=== PATIENT | male | born 1940 | race Caucasian/White ===

== ENCOUNTER → 2016-12-07 | Outpatient (CLI) | payer MEDICARE | END | disposition home or self-care (01) | LOC: LABWHC1 11:07 | PROVIDERS: ATTEND Radiology Radiation Oncology | DX: C61 Malignant neoplasm of prostate (principal) | CPT/HCPCS: 36415; 84153 ==

== ENCOUNTER → 2017-03-19 | Outpatient (CLI) | payer MEDICARE | END | disposition home or self-care (01) | LOC: LABWHC1 13:25 | PROVIDERS: ATTEND Radiology Radiation Oncology | DX: C61 Malignant neoplasm of prostate (principal) | CPT/HCPCS: 36415; 84153 ==

== ENCOUNTER → 2017-06-18 | Outpatient (CLI) | payer MEDICARE | END | disposition home or self-care (01) | LOC: LABWHC1 13:05 | PROVIDERS: ATTEND Radiology Radiation Oncology | DX: C61 Malignant neoplasm of prostate (principal) | CPT/HCPCS: 36415; 84153 ==

== ENCOUNTER → 2017-09-20 | Outpatient (CLI) | payer MEDICARE | END | disposition home or self-care (01) | LOC: LABWHC1 12:52 | PROVIDERS: ATTEND Radiology Radiation Oncology | DX: C61 Malignant neoplasm of prostate (principal) | CPT/HCPCS: 36415; 84153 ==

== ENCOUNTER → 2017-10-29 | Outpatient (CLI) | payer MEDICARE ==
[2017-10-29 13:34] LABS: MCH 33.2 pg (25.0-35.0); MCV 94.8 fL (80.0-100.0); Mean Platelet Volume 6.8; Platelet Count 204 k/uL (150-450); RBC 4.21 m/uL (4.30-5.90); RDW 13.7 % (11.5-15.5); WBC 5.4 k/uL (3.8-10.6)
[2017-10-29 13:45] LABS: C Reactive Protein 5.1 mg/L (<10.0); Calcium 9.3 mg/dL (8.4-10.2); Potassium 4.4 mmol/L (3.5-5.1); Total Bilirubin 0.5 mg/dL (0.2-1.3); Total Protein 6.9 g/dL (6.3-8.2)
[2017-10-29 14:52] LABS: Erythrocyte Sedimentation Rate 20 mm/hr (0-15)
== END | disposition home or self-care (01) ==
LOC: LABWHC1 13:12
PROVIDERS: ATTEND Family Medicine
DX: K62.7 Radiation proctitis (principal)
CPT/HCPCS: 36415; 80053; 84134; 85027; 85652; 86140

== ENCOUNTER → 2018-01-17 | Outpatient (CLI) | payer MEDICARE | END | disposition home or self-care (01) | LOC: LABWHC1 12:36 | PROVIDERS: ATTEND Radiology Radiation Oncology | DX: C61 Malignant neoplasm of prostate (principal) | CPT/HCPCS: 36415; 84153; 84403 ==

== ENCOUNTER → 2018-04-12 | Outpatient (CLI) | payer MEDICARE | END | disposition home or self-care (01) | LOC: LABWHC1 13:32 | PROVIDERS: ATTEND Radiology Radiation Oncology | DX: C61 Malignant neoplasm of prostate (principal) | CPT/HCPCS: 36415; 84153; 84403 ==

== ENCOUNTER → 2018-07-12 | Outpatient (CLI) | payer MEDICARE | END | disposition home or self-care (01) | LOC: LABWHC1 13:56 | PROVIDERS: ATTEND Radiology Radiation Oncology | DX: C61 Malignant neoplasm of prostate (principal); Z79.818 Long term (current) use of other agents affecting estrogen receptors and estrogen levels; Z92.3 Personal history of irradiation | CPT/HCPCS: 36415; 84153; 84403 ==

== ENCOUNTER → 2018-11-10 | Outpatient (CLI) | payer MEDICARE | END | disposition home or self-care (01) | LOC: LABWHC1 13:40 | PROVIDERS: ATTEND Radiology Radiation Oncology | DX: C61 Malignant neoplasm of prostate (principal); Z92.3 Personal history of irradiation; Z79.818 Long term (current) use of other agents affecting estrogen receptors and estrogen levels | CPT/HCPCS: 36415; 84153 ==

== ENCOUNTER → 2019-03-20 | Outpatient (CLI) | payer MEDICARE | END | disposition home or self-care (01) | LOC: LABWHC1 13:50 | PROVIDERS: ATTEND Radiology Radiation Oncology | DX: C61 Malignant neoplasm of prostate (principal); Z79.818 Long term (current) use of other agents affecting estrogen receptors and estrogen levels; Z92.3 Personal history of irradiation | CPT/HCPCS: 36415; 84153 ==

== ENCOUNTER 2019-05-05 15:55 | Observation (INO) | payer MEDICARE ==
[2019-05-05 16:49] LABS: Basophils # (A) 0.1 k/uL (0-0.2); Basophils % (A) 1 %; Eosinophils # (A) 0.1 k/uL (0-0.7); Eosinophils % (A) 2 %; HCT 51.6 % (39.0-53.0); HGB 17.1 gm/dL (13.0-17.5); Lymphocytes # (A) 1.4 k/uL (1.0-4.8); Lymphocytes % (A) 20 %; MCH 33.1 pg (25.0-35.0); MCHC 33.1 g/dL (31.0-37.0); MCV 99.9 fL (80.0-100.0); Mean Platelet Volume 6.3; Monocytes # (A) 0.4 k/uL (0-1.0); Monocytes % (A) 5 %; Neutrophils # (A) 5.2 k/uL (1.3-7.7); Neutrophils % (A) 71 %; Platelet Count 200 k/uL (150-450); RBC 5.16 m/uL (4.30-5.90); RDW 13.8 % (11.5-15.5); WBC 7.3 k/uL (3.8-10.6)
--- NOTE | 2019-05-05 16:51 | ED ---
General Adult HPI - General Chief complaint: Syncope Stated complaint: SYNCOPE, HEART RACING Time Seen by Provider: 05/05/19 16:08 Source: patient Mode of arrival: ambulatory Limitations: no limitations - History of Present Illness Initial comments: Dictation was produced using [employer] dictation software. please excuse any grammatical, word or spelling errors. Chief Complaint: 78-year-old male presents with syncope and palpitations. History of Present Illness: Any 8-year-old male. He presents today with chief complaint of syncope that occurred couple hours prior to arrival. Patient states he was at home over these plants when all of a sudden he remembers waking up on the ground around his plants. Patient states that he was at home by himself. Call was unwitnessed. Patient states he had episode of palpitations prior to the onset of his syncope. He states that his heart does not feel limits racing currently. Patient has history of A. fib that was diagnosed several years ago. He is to be on anticoagulation medications however it was stopped due to GI bleed. This occurred approximately 2 years ago. Patient is on a beta yary. Takes aspirin. He currently does not take any anticoagulation medications and has not had any since 2 years ago. Patient denies any complaints at this time. The ROS documented in this emergency department record has been reviewed and confirmed by me. Those systems with pertinent positive or negative responses have been documented in the HPI. All other systems are other negative and/or noncontributory. PHYSICAL EXAM: General Impression: Alert and oriented x3, not in acute distress HEENT: Normocephalic atraumatic, extra-ocular movements intact, pupils equal and reactive to light bilaterally, mucous membranes moist. Cardiovascular: Irregularly irregular rhythm Chest: Lungs clear to auscultation bilaterally, no rhonchi, no wheeze, no rales Abdomen: Bowel sounds present, abdomen soft, non-tender, non-distended, no organomegaly Musculoskeletal: Pulses present and equal in all extremities, no peripheral edema Motor: no focal deficits noted Neurological: CN II-XII grossly intact, no focal motor or sensory deficits noted Skin: Intact with no visualized rashes Psych: Normal affect and mood ED course: 78-year-old male presents after syncope. Signs upon arrival are within acceptable limits. EKG shows atrial fibrillation rapid ventricular rate. Patient's syncope is likely related to A. fib. Laboratory evaluation obtained. CBC, coag panel, metabolic panel is unremarkable. Stool occult blood is positive. Type and screen pending. Chest x-ray shows no acute cardiopulmonary processes. Computed tomography scan of the brain was obtained showing no acute processes. Discussed patient case with Dr. Jarquin who recommends that patient is not a candidate for heparin at this time given that patient is still occult blood positive and had blood clots in his stool 3 days ago. On Cardizem with adequate rate control. Patient given Protonix for GI bleed. Patient be admitted. Stationed cardiology and gastroenterology. Patient given aspirin for slight elevation in troponin. Discussed patient case with Dr. Velazquez was willing to accept patients care. Patient given 500 mL bolus of fluid. Patient adequately rate controlled upon reevaluation with Cardizem. EKG interpretation: Ventricular rate 1, A. fib with RVR, QS 140, QTc 511. No [place] prolongation, no QTC prolongation, no ST or T-wave changes noted. - Related Data Home Medications Medication Instructions Recorded Confirmed Furosemide [Lasix] 40 mg PO DAILY 01/29/14 11/11/17 Metoprolol Tartrate 25 mg PO DAILY 06/30/15 11/11/17 Multivitamins, Thera [Multivitamin 1 tab PO AC-SUPPER 06/30/15 11/11/17 (formulary)] Aspirin EC [Ecotrin Low Dose] 81 mg PO DAILY 07/16/15 11/11/17 Thyroid, Pork [[place] Thyroid] 120 mg PO DAILY@0630 10/28/17 11/11/17 Valsartan [Diovan] 160 mg PO DAILY 10/28/17 11/11/17 amLODIPine [Norvasc] 5 mg PO DAILY 10/28/17 11/11/17 Allergies Allergy/AdvReac Type Severity Reaction Status Date / Time levothyroxine sodium Allergy Unknown Verified 05/05/19 16:06 [From Synthroid] Penicillins Allergy Swelling Verified 05/05/19 16:06 rivaroxaban [From Xarelto] AdvReac Unknown Verified 05/05/19 16:06 Review of Systems ROS Statement: Those systems with pertinent positive or pertinent negative responses have been documented in the HPI. ROS Other: All systems not noted in ROS Statement are negative. Past Medical History Past Medical History: Atrial Fibrillation, Hypertension, Thyroid Disorder Additional Past Medical History / Comment(s): NO THYROID GLAND. Has not been in A Fib for over 3 years History of Any Multi-Drug Resistant Organisms: None Reported Past Surgical History: Joint Replacement Additional Past Surgical History / Comment(s): RIGHT KNEE REPLACEMENT 2009 Past Anesthesia/Blood Transfusion Reactions: No Reported Reaction Past Psychological History: No Psychological Hx Reported Smoking Status: Never smoker Past Alcohol Use History: Occasional Past Drug Use History: None Reported - Past Family History Mother Family Medical History: CVA/TIA Additional Family Medical History / Comment(s): OF STROKE AT 82 Father History Unknown: Yes Family Medical History: Diabetes Mellitus Additional Family Medical History / Comment(s): LATER IN LIFE Brother(s) History Unknown: Yes Additional Family Medical History / Comment(s): BRAIN ANERYSMN General Exam Limitations: no limitations Course Vital Signs 05/05/19 16:04 Temperature 98.2 F Pulse Rate 98 Respiratory 20 Rate Blood Pressure 130/76 O2 Sat by Pulse 100 Oximetry Medical Decision Making - Lab Data Result diagrams: 05/05/19 16:34 05/05/19 16:34 Lab Results 05/05/19 05/05/19 05/05/19 Range/Units 16:30 16:30 16:34 WBC (3.8-10.6) k/uL RBC (4.30-5.90) m/uL Hgb (13.0-17.5) gm/dL Hct (39.0-53.0) % MCV (80.0-100.0) fL MCH (25.0-35.0) pg MCHC (31.0-37.0) g/dL RDW (11.5-15.5) % Plt Count (150-450) k/uL Neutrophils % % Lymphocytes % % Monocytes % % Eosinophils % % Basophils % % Neutrophils # (1.3-7.7) k/uL Lymphocytes # (1.0-4.8) k/uL Monocytes # (0-1.0) k/uL Eosinophils # (0-0.7) k/uL Basophils # (0-0.2) k/uL PT (9.0-12.0) sec INR (<1.2) APTT (22.0-30.0) sec Sodium 140 (137-145) mmol/L Potassium 4.2 (3.5-5.1) mmol/L Chloride 104 (98-107) mmol/L Carbon Dioxide 26 (22-30) mmol/L Anion Gap 10 mmol/L BUN 15 (9-20) mg/dL Creatinine 0.98 (0.66-1.25) mg/dL Est GFR (CKD-EPI)AfAm 86 (>60 ml/min/1.73 sqM) Est GFR (CKD-EPI)NonAf 75 (>60 ml/min/1.73 sqM) Glucose 129 H (74-99) mg/dL Calcium 9.6 (8.4-10.2) mg/dL Magnesium (1.6-2.3) mg/dL Troponin I (0.000-0.034) ng/mL Stool Occult Blood Positive (Negative) Blood Type Blood Type Confirm O Negative Blood Type Recheck Bld Type Recheck Status Antibody Screen Spec Expiration Date 05/05/19 05/05/19 05/05/19 Range/Units 16:34 16:34 16:34 WBC 7.3 (3.8-10.6) k/uL RBC 5.16 (4.30-5.90) m/uL Hgb 17.1 (13.0-17.5) gm/dL Hct 51.6 (39.0-53.0) % MCV 99.9 (80.0-100.0) fL MCH 33.1 (25.0-35.0) pg MCHC 33.1 (31.0-37.0) g/dL RDW 13.8 (11.5-15.5) % Plt Count 200 (150-450) k/uL Neutrophils % 71 % Lymphocytes % 20 % Monocytes % 5 % Eosinophils % 2 % Basophils % 1 % Neutrophils # 5.2 (1.3-7.7) k/uL Lymphocytes # 1.4 (1.0-4.8) k/uL Monocytes # 0.4 (0-1.0) k/uL Eosinophils # 0.1 (0-0.7) k/uL Basophils # 0.1 (0-0.2) k/uL PT 9.7 (9.0-12.0) sec INR 0.9 (<1.2) APTT 24.4 (22.0-30.0) sec Sodium (137-145) mmol/L Potassium (3.5-5.1) mmol/L Chloride (98-107) mmol/L Carbon Dioxide (22-30) mmol/L Anion Gap mmol/L BUN (9-20) mg/dL Creatinine (0.66-1.25) mg/dL Est GFR (CKD-EPI)AfAm (>60 ml/min/1.73 sqM) Est GFR (CKD-EPI)NonAf (>60 ml/min/1.73 sqM) Glucose (74-99) mg/dL Calcium (8.4-10.2) mg/dL Magnesium (1.6-2.3) mg/dL Troponin I 0.025 (0.000-0.034) ng/mL Stool Occult Blood (Negative) Blood Type Blood Type Confirm Blood Type Recheck Bld Type Recheck Status Antibody Screen Spec Expiration Date 05/05/19 05/05/19 Range/Units 16:34 16:34 WBC (3.8-10.6) k/uL RBC (4.30-5.90) m/uL Hgb (13.0-17.5) gm/dL Hct (39.0-53.0) % MCV (80.0-100.0) fL MCH (25.0-35.0) pg MCHC (31.0-37.0) g/dL RDW (11.5-15.5) % Plt Count (150-450) k/uL Neutrophils % % Lymphocytes % % Monocytes % % Eosinophils % % Basophils % % Neutrophils # (1.3-7.7) k/uL Lymphocytes # (1.0-4.8) k/uL Monocytes # (0-1.0) k/uL Eosinophils # (0-0.7) k/uL Basophils # (0-0.2) k/uL PT (9.0-12.0) sec INR (<1.2) APTT (22.0-30.0) sec Sodium (137-145) mmol/L Potassium (3.5-5.1) mmol/L Chloride (98-107) mmol/L Carbon Dioxide (22-30) mmol/L Anion Gap mmol/L BUN (9-20) mg/dL Creatinine (0.66-1.25) mg/dL Est GFR (CKD-EPI)AfAm (>60 ml/min/1.73 sqM) Est GFR (CKD-EPI)NonAf (>60 ml/min/1.73 sqM) Glucose (74-99) mg/dL Calcium (8.4-10.2) mg/dL Magnesium 2.2 (1.6-2.3) mg/dL Troponin I (0.000-0.034) ng/mL Stool Occult Blood (Negative) Blood Type O Negative Blood Type Confirm Blood Type Recheck No Previous Record Bld Type Recheck Status CABO Indicated Antibody Screen NEGATIVE Spec Expiration Date 05/08/2019 - 2336 Critical Care Time Critical Care Time: Yes Total Critical Care Time: 31 Disposition Clinical Impression: Atrial fibrillation with RVR Disposition: ADMITTED IP TO THIS HOSP Condition: Fair Referrals: None,Stated [Primary Care Provider] - 1-2 days Decision Time: 17:39
[2019-05-05 16:56] LABS: Calcium 9.6 mg/dL (8.4-10.2); Potassium 4.2 mmol/L (3.5-5.1)
[2019-05-05 16:57] LABS: INR 0.9 (<1.2); Partial Thromboplastin Time 24.4 sec (22.0-30.0); Prothrombin Time 9.7 sec (9.0-12.0)
--- NOTE | 2019-05-05 17:13 | CT ---
EXAMINATION TYPE: CT brain cspine wo con DATE OF EXAM: 05/05/2019 COMPARISON: MRI brain dated 08/12/2015 HISTORY: Syncope with fall injury. Head and neck pain. CT DLP: 1517.3 mGycm. Automated Exposure Control for Dose Reduction was Utilized. TECHNIQUE: CT scan of the head and cervical spine are performed without contrast. FINDINGS: There is no acute intracranial hemorrhage, mass effect, or midline shift identified. No s uspicious extra-axial fluid collection. The ventricles and sulci are symmetrically prominent compatib le with age-related volume loss. The globes are intact and the visualized sinuses are clear. Cervical spine is visualized in its entirety from C1 through upper thoracic levels and demonstrates s atisfactory alignment without evidence of acute fracture or dislocation. Prevertebral soft tissue ap pears within normal limits. The C1-C2 articulation is unremarkable. Moderate multilevel degenerativ e disc disease of the cervical spine. Evaluation of the spinal canal limited. No high-grade spinal ca nal stenosis. Straightening of usual cervical lordosis may relate to muscular spasm or patient positi oning. IMPRESSION: 1. There is no acute fracture or dislocation evident in the cervical spine. 2. No acute intracranial hemorrhage, mass effect, or midline shift is seen. 3. Moderate multilevel degenerative disc disease of the cervical spine and straightening of the usual cervical lordosis that may relate to muscular sprain/spasm or patient positioning.
--- NOTE | 2019-05-05 17:13 | XR ---
EXAMINATION TYPE: XR chest 1V portable DATE OF EXAM: 05/05/2019 COMPARISON: NONE HISTORY: Unwitnessed fall. Syncope. TECHNIQUE: Single frontal view of the chest is obtained. FINDINGS: Biapical pleural thickening is similar to the prior of 06/23/2016. Left basilar linear atel ectasis is seen at the costophrenic angle. There is no focal air space opacity, pleural effusion, or pneumothorax seen. The cardiac silhouette size is mildly enlarged. The osseous structures are inta ct. IMPRESSION: Left basilar atelectasis otherwise no acute cardiopulmonary process.
[2019-05-05] MEDS ORDERED: DILTIAZEM 125 MG in SODIUM CHLORIDE 0.9% 100 ML IV SCH (17:30)
[2019-05-05] MEDS ORDERED: SODIUM CHLORIDE 0.9% 500 ML 500 ML IV STA (17:32)
[2019-05-05] MEDS ORDERED: ASPIRIN 81 MG PO STA (17:32)
[2019-05-05] MEDS ORDERED: PANTOPRAZOLE 40 MG/10 ML VIAL IVP ONE (17:33)
[2019-05-05] MEDS ORDERED: NALOXONE 0.4 MG/ML 1 ML VIAL IV PRN (17:39)
[2019-05-05] MEDS ORDERED: ONDANSETRON 4 MG/2 ML VIAL IVP PRN (17:39)
[2019-05-05] MEDS: SODIUM CHLORIDE 0.9% 1,000 ML IV SCH (18:07)
[2019-05-05 22:23] VITALS: BMI 29.6
[2019-05-05] MEDS: amLODIPine 5 MG TAB PO SCH (23:21)
[2019-05-05] MEDS: ASPIRIN 81 MG PO SCH (23:22)
[2019-05-06] MEDS ORDERED: THYROID, PORK 30 MG TAB PO SCH (06:30)
--- NOTE | 2019-05-06 07:28 | P.HPIM ---
History of Present Illness H&P Date: 05/06/19 Chief Complaint: syncope 78-year-old male with history of paroxysmal A. fib and hypertension. History of prostate cancer he comes into the hospital due to sudden onset syncope he passed out and landed on the carpet denies any injuries he was out for approximately 2-3 minutes and then woke up.he realized that he is in A. fib as he was having palpitations and heart racing he called his son to come to the hospital. Right time he arrived he converted spontaneously before he was started on Cardizem drip. He denies any associated shortness of breath or chest pain. He takes aspirin but is not on any anticoagulation he used to be on Coumadin but had GI bleeding 5 years ago and stopped Coumadin. Patient also reports history of GI bleeding while on Coumadin 5 years ago. And then recently 3-4 days ago he started noticing some blood spotting in his stool he tested positive guaiac in the ED. Patient denies taking any NSAIDs alcohol. Denies any abdominal pain nausea or vomiting. He reports that he is compliant with all his medications. Currently feels comfortable laying in bed very cooperative. Denies any fevers chills chest pain trouble breathing coughing. Denies changes in urinary habits. Review of Systems Pertinent positives as noted in HPI. All other systems were reviewed and are negative Past Medical History Past Medical History: Atrial Fibrillation, Hypertension, Thyroid Disorder Additional Past Medical History / Comment(s): NO THYROID GLAND. Has not been in A Fib for over 3 years History of Any Multi-Drug Resistant Organisms: None Reported Past Surgical History: Joint Replacement Additional Past Surgical History / Comment(s): RIGHT KNEE REPLACEMENT 2009 Past Anesthesia/Blood Transfusion Reactions: No Reported Reaction Past Psychological History: No Psychological Hx Reported Smoking Status: Never smoker Past Alcohol Use History: Occasional Past Drug Use History: None Reported - Past Family History Mother Family Medical History: CVA/TIA Additional Family Medical History / Comment(s): OF STROKE AT 82 Father History Unknown: Yes Family Medical History: Diabetes Mellitus Additional Family Medical History / Comment(s): LATER IN LIFE Brother(s) History Unknown: Yes Additional Family Medical History / Comment(s): BRAIN ANERYSMN Medications and Allergies Home Medications Medication Instructions Recorded Confirmed Type Furosemide [Lasix] 40 mg PO DAILY 01/29/14 05/05/19 History Metoprolol Tartrate 25 mg PO DAILY 06/30/15 05/05/19 History Multivitamins, Thera [Multivitamin 1 tab PO W/LUNCH 06/30/15 05/05/19 History (formulary)] Aspirin EC [Ecotrin Low Dose] 81 mg PO HS 07/16/15 05/05/19 History amLODIPine [Norvasc] 5 mg PO HS 10/28/17 05/05/19 History Thyroid,Pork [[place] Thyroid] 120 mg PO DAILY 05/05/19 05/05/19 History Valsartan [Diovan] 160 mg PO W/LUNCH 05/05/19 05/05/19 History Allergies Allergy/AdvReac Type Severity Reaction Status Date / Time levothyroxine sodium Allergy Unknown Verified 05/05/19 17:55 [From Synthroid] Penicillins Allergy Swelling Verified 05/05/19 17:55 rivaroxaban [From Xarelto] AdvReac Unknown Verified 05/05/19 17:55 Physical Exam Vitals: Vital Signs Temp Pulse Pulse Resp BP BP Pulse Ox 05/05/19 18:50 67 16 116/72 97 05/05/19 18:18 98.2 F 62 18 117/82 99 05/05/19 16:04 98.2 F 98 20 130/76 100 Intake and Output 05/05/19 05/05/19 05/05/19 06:59 14:59 22:59 Other: Weight 88.451 kg Constitutional: No acute distress, conversant, pleasant Eyes: Anicteric sclerae, moist conjunctiva, no lid-lag Pupils equal round reactive to light ENMT: NC/AT Oropharynx clear, no erythema, exudates Neck: Supple, FROM, no masses, or JVD No carotid bruits No thyromegaly Lungs: Clear to auscultation Clear to percussion Normal respiratory effort, no accessory muscle use Cardiovascular: Heart regular in rate and rhythm, No murmurs, gallops, or rubs No peripheral edema Abdominal: Soft Nontender, no guarding, rebound or rigidity Abdomen moving with respiration Normoactive bowel sounds No hepatomegaly, No splenomegaly No palpable mass No abdominal wall hernia noted Skin: Normal temperature, tone, texture, turgor No induration No subcutaneous nodules No rash, lesions No ulcers Extremities: No digital cyanosis No clubbing Pedal pulses intact and symmetrical Radial pulses intact and symmetrical No calf tenderness Psychiatric: Alert and oriented to person, place and time Appropriate affect fair judgment Neuro Muscles Strength 5/5 in all 4 extremities Sensation to light touch grossly present throughout Cranial nerves II-XII grossly intact No focal sensory deficits Lymphatics: no palpable cervical or supraclavicular , or inguinal lymph nodes Results CBC & Chem 7: 05/05/19 16:34 05/05/19 16:34 Labs: Abnormal Lab Results - Last 24 Hours (Table) 05/05/19 Range/Units 16:34 Glucose 129 H (74-99) mg/dL Assessment and Plan Assessment: 78 year old male with history of afib and hypertension presented due to palpitation and syncope. was found to be in afib, which converted spontaneously in the ED. admitted for cardio eval patient also reported possible GIB with history of GIB when he was on coumadin years ago.. and now having some blood spotting in his BM. occult blood test was positive Plan: syncope afib with RVR not on anticoagulation due to history of GIB continue aspirin patient converted to sinus rhythm spontaneously continue BB cardio eval positive occult blood test report of occasional blood in stool GI eval h/o colonoscopy 6 years ago patient reports it was normal hypertension , controlled continue home meds * CODE STATUS:full code DVT prophylaxis: mechanical Discussed with: Patient, ER, RN Anticipated length of stay < than [address]: home A total of 60 minutes was spent on the care of this complex patient more than 50% of the time was spent in counseling and care coordination.
[2019-05-06] MEDS ORDERED: METOPROLOL TARTRATE 25 MG TAB PO SCH (09:00)
[2019-05-06] MEDS: THYROID, PORK 30 MG TAB PO SCH (09:27)
[2019-05-06] MEDS: PANTOPRAZOLE 40 MG/10 ML VIAL IV SCH (09:27)
[2019-05-06] MEDS: FUROSEMIDE 40 MG TAB PO SCH (09:28)
[2019-05-06] MEDS: SODIUM CHLORIDE 0.9% 1,000 ML IV SCH ×2 (09:29→11:37)
[2019-05-06 09:45] LABS: T4, Free (Free Thyroxine) 0.64 ng/dL (0.78-2.19)
--- NOTE | 2019-05-06 12:10 | P.CRDCN ---
History of Present Illness History of present illness: HISTORY OF PRESENTING ILLNESS This is a pleasant 78-year-old male past medical history significant for paroxysmal atrial fibrillation not on mcc anticoagulation secondary to GI bleeding in the past, hypertension, hypothyroidism. He presented with palpitations and syncope. He follows in the office with Dr. Asencio. We have been asked to see him in consultation for Tamera riojas. He states yesterday morning when he first woke up he initially did feel some palpitations. He has a prescription for metoprolol that he takes regularly and he does sometimes take a n additional dose if he feels he is in atrial fibrillation. He took his regularly scheduled morning dose and his palpitations did seem to subside. He went about his day and was moving some plants from outside to inside. He remembers bringing the plantar and setting it down on the ground in his house and the next thing he remembers he woke up on the floor. When he woke up he did feel quite consistent palpitations. He denies ever having felt any chest discomfort, shortness of breath or dizziness. He states in the past he was on long-term anticoagulation however he had significant GI bleeding after receiving radiation therapy secondary to prostate cancer and she does not think long-term anticoagulation anymore. Stool on admission was positive for occult blood. He is seen and examined sitting up eating breakfast in no acute distress. He denies any active GI bleeding. He denies any chest discomfort, dizziness or any ongoing palpitations. Breathing is stable. Initial EKG on admission revealed atrial fibrillation however he did spontaneously convert to sinus mechanism. He has had intermittent episodes of paroxysmal atrial fibrillation on telemetry as well as nonsustained ventricular tachycardia specifically this morning at 725 he had a 5 beat run of monomorphic VT and a couplet just prior to that at 0507. DIAGNOSTICS EKG reveals sinus mechanism, left bundle branch block pattern, left axis deviation heart rate of 61.. Chest xray left basilar atelectasis otherwise no acute cardiopulmonary process. Laboratory reviewed, WBC 7.3, hemoglobin 17.1, platelets 200, d-dimer 0.6, sodium 140, potassium 4.2, creatinine 0.98, initial troponin 0.02 5 repeat this morning 0.043, TSH 11.9 and free T4 0.64. Current cardiac medications include amlodipine 5 mg at bedtime, aspirin 81 mg daily, valsartan 160 mg at lunchtime, metoprolol 25 mg daily, Lasix 40 mg daily. In 2016 he underwent coronary artery catheterization secondary to chest pain and nonsustained VT. At that time his ejection fraction was 50-55% with mild ectatic changes in the RCA otherwise no critical coronary artery disease. REVIEW OF SYSTEMS At the time of my exam: CONSTITUTIONAL: Denies fever or chills. CARDIOVASCULAR: Denies chest pain, shortness of breath, orthopnea, PND or palpitations. RESPIRATORY: Denies cough. GASTROINTESTINAL: Denies abdominal pain, diarrhea, constipation, nausea or vomiting. MUSCULOSKELETAL: Denies myalgias. NEUROLOGIC: Denies numbness, tingling or weakness. ENDOCRINE: Denies fatigue, weight change, polydipsia or polyurina. GENITOURINARY: Denies burning, hematuria or urgency with micturation. HEMATOLOGIC: Denies history of anemia or bleeding. PHYSICAL EXAMINATION Blood pressure 159/86 heart rate 57 afebrile and maintaining oxygen saturaiton on room air. CONSTITUTIONAL: No apparent distress. HEENT: Head is normocephalic. Pupils are equal, round. Sclerae anicteric. Mucous membranes of the mouth are moist. No JVD. No carotid bruit. CHEST EXAMINATION: Lungs are clear to auscultation. No chest wall tenderness is noted on palpation or with deep breathing. HEART EXAMINATION: Regular rate and rhythm. S1, S2 heard. No murmurs, gallops or rub. ABDOMEN: Soft, nontender. Positive bowel sounds. EXTREMITIES: 2+ peripheral pulses, no lower extremity edema and no calf t enderness. NEUROLOGIC EXAMINATION: Patient is awake, alert and oriented x3. ASSESSMENT Syncope Troponin elevation of unclear etiology. We'll check a third troponin to assess for trend. Likely suffered an acute event yesterday in the setting of syncope Nonsustained ventricular tachycardia, history in the past as well Hypertension Paroxysmal atrial fibrillation on long-term anticoagulation secondary to history of GI bleeding Dyslipidemia Hypothyroidism PLAN Obtain 2-D echocardiogram and Doppler study to assess cardiac structure and function. Requesting a second troponin and did reveal a mild abnormality. Will obtain third at 2:00 this afternoon and assess trend. TSH elevated, primary care team to manage. Increase beta yary to twice a day. Nothing by mouth after midnight tonight. Patient may require cardiac catheterization depending on troponin trend. Thank you kindly for this consultation. Nurse Practitioner note has been reviewed, I agree with a documented findings and plan of care. Patient was seen and examined. Past Medical History Past Medical History: Atrial Fibrillation, Hypertension, Thyroid Disorder Additional Past Medical History / Comment(s): NO THYROID GLAND. Has not been in A Fib for over 3 years History of Any Multi-Drug Resistant Organisms: None Reported Past Surgical History: Joint Replacement Additional Past Surgical History / Comment(s): RIGHT KNEE REPLACEMENT 2009 Past Anesthesia/Blood Transfusion Reactions: No Reported Reaction Past Psychological History: No Psychological Hx Reported Smoking Status: Never smoker Past Alcohol Use History: Occasional Past Drug Use History: None Reported - Past Family History Mother Family Medical History: CVA/TIA Additional Family Medical History / Comment(s): OF STROKE AT 82 Father History Unknown: Yes Family Medical History: Diabetes Mellitus Additional Family Medical History / Comment(s): LATER IN LIFE Brother(s) History Unknown: Yes Additional Family Medical History / Comment(s): BRAIN ANERYSMN Medications and Allergies Home Medications Medication Instructions Recorded Confirmed Type Furosemide [Lasix] 40 mg PO DAILY 01/29/14 05/05/19 History Metoprolol Tartrate 25 mg PO DAILY 06/30/15 05/05/19 History Multivitamins, Thera [Multivitamin 1 tab PO W/LUNCH 06/30/15 05/05/19 History (formulary)] Aspirin EC [Ecotrin Low Dose] 81 mg PO HS 07/16/15 05/05/19 History amLODIPine [Norvasc] 5 mg PO HS 10/28/17 05/05/19 History Thyroid,Pork [[place] Thyroid] 120 mg PO DAILY 05/05/19 05/05/19 History Valsartan [Diovan] 160 mg PO W/LUNCH 05/05/19 05/05/19 History Allergies Allergy/AdvReac Type Severity Reaction Status Date / Time levothyroxine sodium Allergy Unknown Verified 05/05/19 17:55 [From Synthroid] Penicillins Allergy Swelling Verified 05/05/19 17:55 rivaroxaban [From Xarelto] AdvReac Unknown Verified 05/05/19 17:55 Physical Exam Vitals: Vital Signs Temp Pulse Pulse Resp BP BP Pulse Ox 05/06/19 05:00 98.0 F 54 L 18 127/66 97 05/06/19 00:00 97.4 F L 68 16 131/78 97 05/05/19 20:00 98.0 F 64 18 130/66 97 05/05/19 18:50 67 16 116/72 97 05/05/19 18:18 98.2 F 62 18 117/82 99 05/05/19 16:04 98.2 F 98 20 130/76 100 Intake and Output 05/05/19 05/06/19 05/06/19 22:59 06:59 14:59 Other: Voiding Method Toilet Toilet # Voids 2 Weight 88.451 kg 95.4 kg Results 05/05/19 16:34 05/05/19 16:34 Cardiac Enzymes 05/05/19 Range/Units 16:34 Troponin I 0.025 (0.000-0.034) ng/mL Coagulation 05/05/19 Range/Units 16:34 PT 9.7 (9.0-12.0) sec APTT 24.4 (22.0-30.0) sec CBC 05/05/19 Range/Units 16:34 WBC 7.3 (3.8-10.6) k/uL RBC 5.16 (4.30-5.90) m/uL Hgb 17.1 (13.0-17.5) gm/dL Hct 51.6 (39.0-53.0) % Plt Count 200 (150-450) k/uL Comprehensive Metabolic Panel 05/05/19 Range/Units 16:34 Sodium 140 (137-145) mmol/L Potassium 4.2 (3.5-5.1) mmol/L Chloride 104 (98-107) mmol/L Carbon Dioxide 26 (22-30) mmol/L BUN 15 (9-20) mg/dL Creatinine 0.98 (0.66-1.25) mg/dL Glucose 129 H (74-99) mg/dL Calcium 9.6 (8.4-10.2) mg/dL Current Medications Generic Name Dose Route Start Last Admin Trade Name Freq PRN Reason Stop Dose Admin Amlodipine Besylate 5 mg 05/05/19 23:00 05/05/19 23:21 Norvasc PO 5 mg HS ELIE Administration Aspirin 81 mg 05/05/19 23:00 05/05/19 23:22 Aspirin PO Not Given HS ELIE Furosemide 40 mg 05/06/19 09:00 Lasix PO DAILY ELIE Diltiazem HCl 125 mg/ Sodium 125 mls @ 5 mls/hr 05/05/19 17:30 05/05/19 18:05 Chloride IV Not Given .Q24H ELIE 5 MG/HR Sodium Chloride 1,000 mls @ 110 mls/hr 05/05/19 17:45 05/05/19 18:07 Saline 0.9% IV 110 mls/hr .Q9H6M ELIE Administration Metoprolol Tartrate 25 mg 05/06/19 09:00 Lopressor PO DAILY ELIE Naloxone HCl 0.2 mg 05/05/19 17:39 Narcan IV Q2M PRN Opioid Reversal Ondansetron HCl 4 mg 05/05/19 17:39 Zofran IVP Q8HR PRN Nausea And Vomiting Pantoprazole Sodium 40 mg 05/06/19 09:00 Protonix IV DAILY ELIE Thyroid 120 mg 05/06/19 09:00 [place] Thyroid PO DAILY ELIE Valsartan 160 mg 05/06/19 12:30 Diovan PO W/LUNCH ELIE Intake and Output 05/05/19 05/06/19 05/06/19 22:59 06:59 14:59 Other: Voiding Method Toilet Toilet # Voids 2 Weight 88.451 kg 95.4 kg 05/05/19 16:34 05/05/19 16:34
[2019-05-06] MEDS ORDERED: VALSARTAN 160 MG TAB PO SCH (12:30)
--- NOTE | 2019-05-06 13:09 | P.PN ---
Subjective Progress Note Date: 05/06/19 Principal diagnosis: syncope Patient is a 78-year-old male past medical history of paroxysmal atrial fibrillation, hypertension, and hypothyroidism [facility]. In the ER he underwent an extensive evaluation. On arrival his vital signs within normal limits. Initial EKG in the emergency department showed atrial fibrillation with rapid ventricular response and left bundle branch block at a ventricular rate of 121. Initially a Cardizem drip was ordered however before this was hung patient spontaneously converted back to normal sinus rhythm. Initial laboratory analysis was essentially unremarkable. Troponin was negative at 0.025. Patient had reported passing several clots of blood in his stool 3 days prior to admission. His stool occult blood was positive. He was admitted for further monitoring and a syncopal event and A. fib. He was not placed on any anticoagulation secondary to possible GI bleed. He has a hx of a GI bleed on xarelto. Cardiology and gastroenterology were consulted. He was seen by cardiology who recommended d- dimer which was normal for age relation. Repeat troponin was slightly elevated. Echocardiogram ordered. Patient seen and examined at bedside. no additional chest pain, palpitations, or shortness of breath. No bright red blood in stools. We discussed his TSH resu lts extensively. He states that his TSH has flucuated in the past. He is not having any symptoms of hypothyroidism and states that his energy level is normal. He is reluctant to change his medications at this point in time as they have been working well for him. He states that when he was on a higher dose of 180 g of [place] Thyroid he was having frequent episodes of palpitations and that is where they cut him back to 120. He like to discuss it with his primary care physician before changing his thyroid medication. Objective - Vital Signs Vital signs: Vital Signs Temp 97.5 F L 05/06/19 11:34 Pulse 57 L 05/06/19 11:34 Resp 18 05/06/19 11:34 BP 159/86 05/06/19 11:34 Pulse Ox 96 05/06/19 11:34 Intake & Output 05/05/19 05/06/19 05/06/19 18:59 06:59 18:59 Intake Total 240 Balance 240 Weight 88.451 kg 95.4 kg Intake: Oral 240 Other: Voiding Method Toilet Toilet # Voids 2 - Exam General: non toxic, no distress, appears younger than stated age Derm: warm, dry Head: atraumatic, normocephalic, symmetric Eyes: EOMI, no lid lag, anicteric sclera Mouth: no lip lesion, mucus membranes moist Cardiovascular: S1S2 reg, no murmur, positive posterior tibial pulse bilateral, Lungs: CTA bilateral, no rhonchi, no rales , no accessory muscle use Abdominal: soft, nontender to palpation, no guarding, no appreciable organomegaly Ext: no gross muscle atrophy, no edema, no contractures Neuro: CN II-XI grossly intact, no focal neuro deficits Psych: Alert, oriented, appropriate affect - Labs CBC & Chem 7: 05/05/19 16:34 05/05/19 16:34 Labs: Abnormal Lab Results - Last 24 Hours (Table) 05/05/19 05/06/19 05/06/19 Range/Units 16:34 07:47 07:47 D-Dimer 0.60 H (<0.60) mg/L FEU Glucose 129 H (74-99) mg/dL Troponin I (0.000-0.034) ng/mL TSH 11.900 H (0.465-4.680) mIU/L Free T4 0.64 L (0.78-2.19) ng/dL 05/06/19 Range/Units 07:47 D-Dimer (<0.60) mg/L FEU Glucose (74-99) mg/dL Troponin I 0.043 H* (0.000-0.034) ng/mL TSH (0.465-4.680) mIU/L Free T4 (0.78-2.19) ng/dL Assessment and Plan Assessment: Syncope suspect related to A. Fib with RVR - Tele now back in NSR - Await echo to r/o valvular disease - cardio recs appreciated, d/w Dr. Jarquin - D-dimer with in normal when age is considered. Mild troponin elevation - follow repeat troponin - ASA, BB Hypothyroidism - repeat TSH as outpatient - f/u with Dr. May to consider increased dose of thyroid, patient not willing to change at this point in time. Positive FOB - Await GI recs - IV PPI BID - Likely could have outpatient follow-up HTN, controlled - continue with BB and ARB - Follow BP DVT prophylaxis: SCDs Discussed with: Patient, nursing, cardio Anticipated discharge: in AM vs later today pending recs Anticipated discharge place: home A total of 35 minutes was spent on the care of this complex patient more than 50% of the time was spent in counseling and care coordination.
--- NOTE | 2019-05-06 14:40 | ECHOF ---
Referral Reason:syncope, afib rvr, hx vt MEASUREMENTS -------- HEIGHT: 172.7 cm WEIGHT: 95.3 kg BP: IVSd: 1.7 cm (0.6 - 1.1) LVIDd: 4.1 cm (3.9 - 5.3) LVPWd: 1.6 cm (0.6 - 1.1) IVSs: 2.1 cm LVIDs: 1.9 cm LVPWs: 2.3 cm Ao Diam: 3.1 cm (2.0 - 3.7) AV Cusp: 2.0 cm (1.5 - 2.6) LA Diam: 2.9 cm (2.7 - 3.8) MV EXCURSION: 10.542 mm (> 18.000) MV EF SLOPE: 73 mm/s (70 - 150) EPSS: 1.3 cm MV E Ezio: 0.48 m/s MV DecT: 260 ms MV A Ezio: 0.72 m/s MV E/A Ratio: 0.67 RAP: 5.00 mmHg RVSP: 10.25 mmHg FINDINGS -------- Atrial fibrillation. This was a technically difficult study with suboptimal views. The left ventricular size is normal. There is moderate concentric left ventricular hypertrophy. O verall left ventricular systolic function is mildly impaired with, an EF between 45 - 50 %. Basal i nferoseptal LV wall motion is hypokinetic. Mid inferoseptal LV wall motion is hypokinetic. The right ventricle is normal in size. The left atrial size is normal. The right atrial size is normal. 5.0mg of Lumason was utilized for enhancement of images The aortic valve is trileaflet and appears structurally normal. The mitral valve is normal. Mild mitral regurgitation is present. The tricuspid valve appears structurally normal. Mild tricuspid regurgitation present. Right vent ricular systolic pressure is normal at < 35 mmHg. There is no pulmonic regurgitation present. The aortic root size is normal. IVC Not well visulized. There is no pericardial effusion. CONCLUSIONS -------- 1. Atrial fibrillation. 2. This was a technically difficult study with suboptimal views. 3. The left ventricular size is normal. 4. There is moderate concentric left ventricular hypertrophy. 5. Overall left ventricular systolic function is mildly impaired with, an EF between 45 - 50 %. 6. Basal inferoseptal LV wall motion is hypokinetic. 7. Mid inferoseptal LV wall motion is hypokinetic. 8. The right ventricle is normal in size. 9. The left atrial size is normal. 10. The right atrial size is normal. 11. 5.0mg of Lumason was utilized for enhancement of images 12. The aortic valve is trileaflet and appears structurally normal. 13. The mitral valve is normal. 14. Mild mitral regurgitation is present. 15. The tricuspid valve appears structurally normal. 16. Mild tricuspid regurgitation present. 17. Right ventricular systolic pressure is normal at < 35 mmHg. 18. There is no pulmonic regurgitation present. 19. The aortic root size is normal. 20. IVC Not well visulized. 21. There is no pericardial effusion. TURRET LATHE MACHINIST: Tara Flaherty RDCS
[2019-05-06] MEDS ORDERED: PEG 3350-NA SULF,BICARB,CL/KCL 4,000 ML BOTTLE PO ONE (17:00)
[2019-05-06] MEDS ORDERED: BISACODYL 5 MG TABLET.DR PO ONE (18:00)
[2019-05-06] MEDS ORDERED: TEMAZEPAM 7.5 MG CAP PO PRN (18:28)
[2019-05-06] MEDS ORDERED: ZOLPIDEM 5 MG TAB PO PRN (18:28)
--- NOTE | 2019-05-06 18:44 | P.CONS ---
History of Present Illness - Reason for Consult Consult date: 05/06/19 Blood per rectum Requesting physician: Marlyn Zhang - Chief Complaint Syncope - History of Present Illness 78-year-old male with a medical history significant for atrial fibrillation, hypertension, hypothyroidism as well as prior treatment for prostate cancer who presented to the hospital due to a syncopal episode. The patient reports a syncope with 2-3 minutes of downtime at which time he felt palpitations and his heart racing. Currently the patient is and evaluated by the cardiology service as he has a history of atrial fibrillation on aspirin therapy. On questioning the patient reports that when initially diagnosed he had been started on Coumadin and was later switched to Xarelto, however Coumadin had been stopped due to bleeding per rectum and the Xarelto had been stopped due to an adverse reaction to the drug. His last colonoscopy was approximately 6 years ago at which time he had polypectomy performed. 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 Over the past 6 months she is seeing the blood per rectum intermittently and discussed the symptoms with his primary care physician recommended repeat colonoscopy, however the patient does not feel as though this is necessary given his age and the known radiation proctitis. He denies any pain in his abdomen. Currently he is sitting in his room bedside, with no other acute complaints. Review of Systems REVIEW OF SYSTEMS: CONSTITUTIONAL: Denies any fevers, chills, weight change or fatigue. CARDIOVASCULAR: Denies any chest pain, does report palpitations with associated syncopal episode RESPIRATORY: Denies any shortness of breath, hemoptysis or cough. GENITOURINARY: No dysuria or hematuria. MUSCULOSKELETAL: No weakness reported. SKIN: Denies any new rashes or lesions, jaundice or pallor. PSYCHIATRIC: Denies any depression or anxiety. NEUROLOGY: Denies headache, denies any new focal deficits. EARS/NOSE/THROAT: No recent hearing change, congestion, nasal discharge or sore throat. EYES: No pain in eyes, discharge or change in vision. GASTROINTESTINAL: As per HPI. Past Medical History Past Medical History: Atrial Fibrillation, Hypertension, Thyroid Disorder Additional Past Medical History / Comment(s): NO THYROID GLAND. Has not been in A Fib for over 3 years History of Any Multi-Drug Resistant Organisms: None Reported Past Surgical History: Joint Replacement Additional Past Surgical History / Comment(s): RIGHT KNEE REPLACEMENT 2009 Past Anesthesia/Blood Transfusion Reactions: No Reported Reaction Past Psychological History: No Psychological Hx Reported Smoking Status: Never smoker Past Alcohol Use History: Occasional Past Drug Use History: None Reported - Past Family History Mother Family Medical History: CVA/TIA Additional Family Medical History / Comment(s): OF STROKE AT 82 Father History Unknown: Yes Family Medical History: Diabetes Mellitus Additional Family Medical History / Comment(s): LATER IN LIFE Brother(s) History Unknown: Yes Additional Family Medical History / Comment(s): BRAIN ANERYSMN Medications and Allergies Home Medications Medication Instructions Recorded Confirmed Type Furosemide [Lasix] 40 mg PO DAILY 01/29/14 05/05/19 History Metoprolol Tartrate 25 mg PO DAILY 06/30/15 05/05/19 History Multivitamins, Thera [Multivitamin 1 tab PO W/LUNCH 06/30/15 05/05/19 History (formulary)] Aspirin EC [Ecotrin Low Dose] 81 mg PO HS 07/16/15 05/05/19 History amLODIPine [Norvasc] 5 mg PO HS 10/28/17 05/05/19 History Thyroid,Pork [[place] Thyroid] 120 mg PO DAILY 05/05/19 05/05/19 History Valsartan [Diovan] 160 mg PO W/LUNCH 05/05/19 05/05/19 History Allergies Allergy/AdvReac Type Severity Reaction Status Date / Time levothyroxine sodium Allergy Unknown Verified 05/05/19 17:55 [From Synthroid] Penicillins Allergy Swelling Verified 05/05/19 17:55 rivaroxaban [From Xarelto] AdvReac Unknown Verified 05/05/19 17:55 Physical Exam Vitals: Vital Signs Temp Pulse Pulse Resp BP BP Pulse Ox 05/06/19 08:00 98.5 F 66 18 133/66 96 05/06/19 05:00 98.0 F 54 L 18 127/66 97 05/06/19 00:00 97.4 F L 68 16 131/78 97 05/05/19 20:00 98.0 F 64 18 130/66 97 05/05/19 18:50 67 16 116/72 97 05/05/19 18:18 98.2 F 62 18 117/82 99 05/05/19 16:04 98.2 F 98 20 130/76 100 Intake and Output 05/05/19 05/06/19 05/06/19 22:59 06:59 14:59 Intake Total 240 Balance 240 Intake: Oral 240 Other: Voiding Method Toilet Toilet Toilet # Voids 2 Weight 88.451 kg 95.4 kg On physical examination, patient appears comfortable in no apparent distress. HEAD: Normocephalic, atraumatic. EYES: No scleral icterus. No conjunctival injection. MOUTH: No lesions, tongue midline. NECK: Trachea midline, no gross abnormalities. CHEST: Clear to auscultation with no wheezing or rhonchi appreciated. HEART: S1-S2 appreciated. ABDOMEN: Soft, obese. Bowel sounds are positive. No organomegaly. No guarding or rigidity. EXTREMITIES: No pedal edema. SKIN: No rashes, no jaundice. NEUROLOGIC: Alert and oriented x3. No focal deficits. Results CBC & Chem 7: 05/05/19 16:34 05/05/19 16:34 Labs: Abnormal Lab Results - Last 24 Hours (Table) 05/05/19 05/06/19 05/06/19 Range/Units 16:34 07:47 07:47 D-Dimer 0.60 H (<0.60) mg/L FEU Glucose 129 H (74-99) mg/dL Troponin I (0.000-0.034) ng/mL TSH 11.900 H (0.465-4.680) mIU/L Free T4 0.64 L (0.78-2.19) ng/dL 05/06/19 Range/Units 07:47 D-Dimer (<0.60) mg/L FEU Glucose (74-99) mg/dL Troponin I 0.043 H* (0.000-0.034) ng/mL TSH (0.465-4.680) mIU/L Free T4 (0.78-2.19) ng/dL Chest x-ray: report reviewed (Chest x-ray showing left basilar atelectasis) Assessment and Plan (1) Blood per rectum Narrative/Plan: 78-year-old male with multiple medical comorbidities including prior history of prostate cancer treated with radiation therapy who presented to the hospital due to syncope episode and is currently being evaluated by the cardiology service. The patient reports a long-standing history of intermittent episodes of blood per rectum which she believes started after receiving radiation for treatment of his prostate cancer and the development of radiation proctitis. The patient reports he will intermittently see blood and clots streaked onto his stool. He previously underwent colonoscopy for evaluation approximate 6 years ago at which time polyps were removed. He subsequently has been advised by his primary care physician to undergo further endoscopic evaluation but is uninterested as he feels he knows the reason for the symptoms and given his age. Hemoglobin was normal on presentation at 7.1 with stool testing positive for occult blood. Unknown etiology with likelihood for radiation proctitis this patient has reported, hemorrhoids, however underlying malignancy or other pathology cannot be excluded. Current Visit: Yes Status: Acute Code(s): K62.5 - HEMORRHAGE OF ANUS AND RECTUM SNOMED Code(s): 98972566 Plan: Supportive care Continue to monitor hemoglobin and transfuse as needed Continue workup per cardiology service Okay for heart healthy diet Extensive discussion with the patient who is offered EGD and colonoscopy for further evaluations of his symptoms and the patient is not interested in pursuing endoscopic evaluation at this time, the risks including further bleeding with possibility of underlying malignancy have been discussed with the patient at length who understands these risks and would like to continue with conservative management to discuss the case further with his primary care physician after discharge at which time we will decide on the need for further endoscopic workup, his questions have been answered to his satisfaction Thank you for allowing us to participate in the care of the patient, the GI service will stand by, please call us back with any questions or concerns
[2019-05-06] MEDS: amLODIPine 5 MG TAB PO SCH (21:00)
[2019-05-06] MEDS: ASPIRIN 81 MG PO SCH (21:00)
[2019-05-06] MEDS: METOPROLOL TARTRATE 25 MG TAB PO SCH (21:00)
[2019-05-07 06:02] VITALS: TEMP 98.1
[2019-05-07 06:09] LABS: HCT 43.6 % (39.0-53.0); HGB 14.9 gm/dL (13.0-17.5); MCH 34.2 pg (25.0-35.0); MCHC 34.1 g/dL (31.0-37.0); MCV 100.2 fL (80.0-100.0); Mean Platelet Volume 5.9; Platelet Count 166 k/uL (150-450); RBC 4.35 m/uL (4.30-5.90); RDW 13.8 % (11.5-15.5); WBC 5.7 k/uL (3.8-10.6)
[2019-05-07 06:12] LABS: African American GFR (CKD) >90 (>60 ml/min/1.73 sqM); Anion Gap 6 mmol/L; Blood Urea Nitrogen 13 mg/dL (9-20); Calcium 9.2 mg/dL (8.4-10.2); Carbon Dioxide 25 mmol/L (22-30); Chloride 108 mmol/L (98-107); Glucose 107 mg/dL (74-99); Potassium 4.3 mmol/L (3.5-5.1); Sodium 139 mmol/L (137-145)
[2019-05-07] MEDS: SODIUM CHLORIDE 0.9% 1,000 ML IV SCH (07:53)
[2019-05-07] MEDS: FUROSEMIDE 40 MG TAB PO SCH (07:55)
[2019-05-07] MEDS: METOPROLOL TARTRATE 25 MG TAB PO SCH (07:55)
[2019-05-07] MEDS: THYROID, PORK 30 MG TAB PO SCH (07:55)
[2019-05-07] MEDS: PANTOPRAZOLE 40 MG/10 ML VIAL IV SCH (07:56)
[2019-05-07 09:14] VITALS: BP 140/63; PULSE 61; RESP 18
--- NOTE | 2019-05-07 12:27 | PN ---
PROGRESS NOTE ADDENDUM: Jhonny is a 78-year-old gentleman that is admitted to hospital yesterday having had an episode of syncope. The patient had mild elevation in troponin and an echocardiogram showed new wall motion abnormality and mild LV dysfunction. I advised the patient to stay in the hospital and undergo cardiac catheterization. Understanding risks, benefits, he does not wish to stay in the hospital. Wishes to go home. Follow up with Dr. Hinton and pursue the workup that way. He understands the risk of progression of myocardial infarction and sudden . I advised the patient to start statin. He does not want to. We will check a lipid profile today and he will discuss with Dr. Asencio in the outpatient setting. MMODL / IJN: [id number] /
--- NOTE | 2019-05-07 16:02 | P.DS ---
Providers Date of admission: 05/05/19 17:41 Expected date of discharge: 05/07/19 Attending physician: Virginie Palafox DO Consults: 05/05/19 17:37 Consult Physician Routine Consulting Provider: Supa Jarquin Consult Reason/Comments: afib w rvr Do you want consulting provider notified?: Yes Primary care physician: Stated None Hospital Course: Discharge Diagnosis: Syncope A fib with RVR Cardiomyopathy-Newly discovered with ejection fraction 45% and new wall motion abnormalities Hypothyroidism suboptimal control Positive occult blood without anemia 1 elevated troponin which was resolved on second draw-due to A. fib Hypertension Hospital Course: Patient is a 78-year-old male past medical history of paroxysmal atrial fibrillation, hypertension, and hypothyroidism who presented to the emergency department after syncopal episode. In the ER he underwent an extensive evaluation. On arrival his vital signs within normal limits. Initial EKG in the emergency department showed atrial fibrillation with rapid ventricular response and left bundle branch block at a ventricular rate of 121. Initially a Cardizem drip was ordered however before this was hung patient spontaneously converted back to normal sinus rhythm. Initial laboratory analysis was essentially unremarkable. Troponin was negative at 0.025. Patient had reported passing several clots of blood in his stool 3 days prior to admission. His stool occult blood was positive, however hemoglobin 17. He was admitted for further monitoring and a syncopal event and A. fib. He was not placed on any anticoagulation secondary to possible GI bleed. He has a hx of a GI bleed on xarelto. Cardiology and gastroenterology were consulted. He was seen by cardiology who recommended d-dimer which was normal for age relation. Repeat troponin was slightly elevated and third troponin was again negative Echocardiogram ordered which demonstrated an ejection fraction 45-50% along with left ventricular wall motion abnormality, this is all new. Case was discussed with cardiology who recommended the patient remain hospitalized for possible car diac catheterization in order to ensure there is no coronary artery disease of his recent syncopal event, recurrent atrial fibrillation and then gone for 3 years, and now new wall motion abnormalities. However despite discussions of risks versus benefit patient refused to have cardiac catheterization completed. He was also seen by GI who offered EGD and colonoscopy and again patient refused. He was monitored overnight and had no recurrent episodes of A. fib with RVR. He was determined stable for discharge home as he did not want any further invasive testing. His metoprolol was increased to 25 mg twice daily. Of note his TSH was 11. I did have an extensive conversation with him the need to increase his thyroid medications however he is not willing to do this at this point in time and states that his thyroid numbers have fluctuated in the past before he will discuss this with his primary care physician who will now be Dr. May as Dr. Avalos has retired. He will follow-up with Dr. Asencio in 2 weeks for further evaluation and consideration of adding statin therapy. Patient seen and examined at bedside. Chest pain free, no shortness of breath, no palpitations, no nausea or vomiting. Requesting discharge home. Vital signs reviewed and stable. General: non toxic, no distress, appears younger than stated age Derm: warm, dry Head: atraumatic, normocephalic, symmetric Eyes: EOMI, no lid lag, anicteric sclera Mouth: no lip lesion, mucus membranes moist Cardiovascular: S1S2 reg, no murmur, positive posterior tibial pulse bilateral, Lungs: CTA bilateral, no rhonchi, no rales , no accessory muscle use Abdominal: soft, nontender to palpation, no guarding, no appreciable organomegaly Ext: no gross muscle atrophy, no edema, no contractures Neuro: CN II-XI grossly intact, no focal neuro deficits Psych: Alert, oriented, appropriate affect A total of 35 minutes of time were spent preparing this complex discharge summary . Patient Condition at Discharge: Fair Plan - Discharge Summary Discharge Rx Participant: Yes New Discharge Prescriptions: New Metoprolol Tartrate [Lopressor] 25 mg PO BID #60 tab Continue Furosemide [Lasix] 40 mg PO DAILY Multivitamins, Thera [Multivitamin (formulary)] 1 tab PO W/LUNCH Aspirin EC [Ecotrin Low Dose] 81 mg PO HS amLODIPine [Norvasc] 5 mg PO HS Thyroid,Pork [[place] Thyroid] 120 mg PO DAILY Valsartan [Diovan] 160 mg PO W/LUNCH Discontinued Metoprolol Tartrate 25 mg PO DAILY Discharge Medication List Furosemide [Lasix] 40 mg PO DAILY 01/29/14 [History] Multivitamins, Thera [Multivitamin (formulary)] 1 tab PO W/LUNCH 06/30/15 [History] Aspirin EC [Ecotrin Low Dose] 81 mg PO HS 07/16/15 [History] amLODIPine [Norvasc] 5 mg PO HS 10/28/17 [History] Thyroid,Pork [[place] Thyroid] 120 mg PO DAILY 05/05/19 [History] Valsartan [Diovan] 160 mg PO W/LUNCH 05/05/19 [History] Metoprolol Tartrate [Lopressor] 25 mg PO BID #60 tab 05/07/19 [Rx] Follow up Appointment(s)/Referral(s): Loretta Asencio MD [STAFF PHYSICIAN] - 2 Weeks (Please call and make follow up appointment) Raissa May MD [STAFF PHYSICIAN] - 1 Week (Please call and make follow up appointment) Patient Instructions/Handouts: A-fib (Atrial Fibrillation) (DC), Gastrointestinal Bleeding (DC), Heart Healthy Diet (DC) Activity/Diet/Wound Care/Special Instructions: Activity: as tolerated Diet: Heart healthy diet Special Instructions: Follow-up with Dr. Schmitz Discharge Disposition: HOME SELF-CARE
== END 2019-05-07 11:55 | disposition home or self-care (01) ==
LOC: EC 15:55 → 3SCARD 17:41
PROVIDERS: ADMIT Internal Medicine; ATTEND Internal Medicine
DX: I48.0 Paroxysmal atrial fibrillation (principal); I42.9 Cardiomyopathy, unspecified; R55 Syncope and collapse; I11.9 Hypertensive heart disease without heart failure; I44.7 Left bundle-branch block, unspecified; J98.11 Atelectasis; E03.9 Hypothyroidism, unspecified; K62.7 Radiation proctitis; R19.5 Other fecal abnormalities; Y84.2 Radiological procedure and radiotherapy as the cause of abnormal reaction of the patient, or of later complication, without mention of misadventure at the time of the procedure; K64.9 Unspecified hemorrhoids; E78.5 Hyperlipidemia, unspecified; Z79.82 Long term (current) use of aspirin; Z79.899 Other long term (current) drug therapy; Z96.651 Presence of right artificial knee joint; Z85.46 Personal history of malignant neoplasm of prostate; Z87.19 Personal history of other diseases of the digestive system; Z92.3 Personal history of irradiation; Z86.010 Personal history of colon polyps; Z88.0 Allergy status to penicillin; Z88.8 Allergy status to other drugs, medicaments and biological substances; Z83.3 Family history of diabetes mellitus; Z82.3 Family history of stroke; Z82.49 Family history of ischemic heart disease and other diseases of the circulatory system
CPT/HCPCS: 96361 ×3; 96374; 99291; 36415; 93005; 86900; 86901; 85379; 84439; 80048 ×2; 84443; 83735; 84484 ×2; 85025; 85027; 85610; 85730; 86850; 82272; 71045; 72125; 70450; G0378 ×3; C8929; C9113; Q9950; 93306

== ENCOUNTER → 2019-10-03 | Outpatient (CLI) | payer MEDICARE | END | disposition home or self-care (01) | LOC: LABWHC1 11:12 | PROVIDERS: ATTEND Radiology Radiation Oncology | DX: C61 Malignant neoplasm of prostate (principal); Z79.818 Long term (current) use of other agents affecting estrogen receptors and estrogen levels; Z92.3 Personal history of irradiation | CPT/HCPCS: 36415; 84153 ==

== ENCOUNTER → 2020-03-29 | Outpatient (CLI) | payer MEDICARE | END | disposition home or self-care (01) | LOC: LABWHC1 15:09 | PROVIDERS: ATTEND Radiology Radiation Oncology | DX: C61 Malignant neoplasm of prostate (principal); Z79.818 Long term (current) use of other agents affecting estrogen receptors and estrogen levels; Z92.3 Personal history of irradiation | CPT/HCPCS: 36415; 84153 ==

== ENCOUNTER → 2020-10-24 | Outpatient (CLI) | payer MEDICARE ==
--- NOTE | 2020-10-24 16:46 | CT ---
EXAMINATION TYPE: CT abdomen pelvis wo con DATE OF EXAM: 10/24/2020 HISTORY: Hematuria. CT DLP: 1009 mGycm. Automated Exposure Control for Dose Reduction was Utilized. TECHNIQUE: CT scan of the abdomen and pelvis is performed with oral but without IV contrast. COMPARISON: CTA aorta June 23, 2016 FINDINGS: Within the limitations of a non-contrast study, the following observations are made. LUNG BASES: No significant abnormality is appreciated. LIVER/GB: Persistent dependent calcified 11 mm gallstone. Visualized liver is heterogeneously hypoden se consistent with diffuse fatty infiltration. PANCREAS: Vljx-da-ntibhetd generalized fat replaced atrophy. SPLEEN: No significant abnormality is seen. ADRENALS: No significant abnormality is seen. KIDNEYS: Cortical thinning both kidneys. No renal stones or hydronephrosis. Simple appearing small t hin-walled cysts in both kidneys. Poorly distended bladder with moderate concentric wall thickening. BOWEL: Oral contrast reaches level of cecum. No suspicious small or large bowel dilatation. Diverticu la on the left and sigmoid colon. No CT evidence for acute diverticulitis. GENITAL ORGANS: Enlarged prostate consistent with BPH bulging into the bladder base. LYMPH NODES: No greater than 1cm abdominal or pelvic lymph nodes are appreciated. OSSEOUS STRUCTURES: Moderate narrowing of both hip joints with mild to moderate acetabular spurring w ithout multilevel disc space narrowing in the lumbar spine. Multilevel facet arthropathy mid to lower lumbar spine. OTHER: Moderate calcified plaque of the infrarenal abdominal aorta extends into iliac branch vessels. IMPRESSION: Moderate bladder wall thickening could reflect product of a hemorrhagic or nonhemorrhagi c cystitis. Differential includes outlet obstruction related to BPH. Correlate clinically. Otherwise no source of hematuria identified.
== END | disposition home or self-care (01) ==
LOC: RADCTMAIN 14:06
PROVIDERS: ATTEND Nurse Practitioner Family
DX: R31.9 Hematuria, unspecified (principal); N32.89 Other specified disorders of bladder
CPT/HCPCS: 74176

== ENCOUNTER → 2021-03-28 | Outpatient (CLI) | payer MEDICARE | END | disposition home or self-care (01) | LOC: LABWHC1 14:08 | PROVIDERS: ATTEND Radiology Radiation Oncology | DX: Z08 Encounter for follow-up examination after completed treatment for malignant neoplasm (principal); C61 Malignant neoplasm of prostate; Z79.818 Long term (current) use of other agents affecting estrogen receptors and estrogen levels; Z92.3 Personal history of irradiation | CPT/HCPCS: 36415; 84153 ==

== ENCOUNTER 2023-05-10 13:32 | Day surgery (SDC) | payer MEDICARE ==
[2023-05-06 14:51] VITALS: BMI 25.8
[~2023-05-10 13:32] MED LIST: LIDOCAINE 1% (10MG/ML) FOR IV START INTRADERMA PRN
[2023-05-10] MEDS: LACTATED RINGERS 1,000 ML IV SCH ×2 (14:16→15:29)
[2023-05-10 14:23] VITALS: TEMP 97.9
[2023-05-10] MEDS ORDERED: LIDOCAINE 1% INJ 10MG/ML (20 ML MDV) ONE (15:30)
[2023-05-10] MEDS ORDERED: PROPOFOL 10 MG/ML 20 ML VIAL IV ONE (15:30)
--- NOTE | 2023-05-10 15:33 | P.GSHP ---
History of Present Illness H&P Date: 05/10/23 Chief Complaint: Positive colon guard test This a-year-old male who had recent positive colon guard test. Patient presents today for screening colonoscopy. Past Medical History Past Medical History: Atrial Fibrillation, Hypertension, Thyroid Disorder Additional Past Medical History / Comment(s): NO THYROID GLAND. Has not been in A Fib for over 3 years History of Any Multi-Drug Resistant Organisms: None Reported Past Surgical History: Joint Replacement Additional Past Surgical History / Comment(s): RIGHT KNEE REPLACEMENT 2009 Past Anesthesia/Blood Transfusion Reactions: No Reported Reaction Smoking Status: Never smoker - Past Family History Mother Family Medical History: CVA/TIA Additional Family Medical History / Comment(s): OF STROKE AT 82 Father History Unknown: Yes Family Medical History: Diabetes Mellitus Additional Family Medical History / Comment(s): LATER IN LIFE Brother(s) History Unknown: Yes Additional Family Medical History / Comment(s): BRAIN ANERYSMN Medications and Allergies Home Medications Medication Instructions Recorded Confirmed Type Furosemide [Lasix] 40 mg PO DAILY 01/29/14 05/10/23 History Multivitamins, Thera [Multivitamin 1 tab PO W/LUNCH 06/30/15 05/10/23 History (formulary)] Aspirin EC [Ecotrin Low Dose] 81 mg PO HS 07/16/15 05/10/23 History amLODIPine [Norvasc] 5 mg PO HS 10/28/17 05/10/23 History Thyroid,Pork [[place] Thyroid] 120 mg PO DAILY 05/05/19 05/10/23 History Valsartan [Diovan] 160 mg PO W/LUNCH 05/05/19 05/10/23 History Metoprolol Tartrate [Lopressor] 25 mg PO BID #60 tab 05/07/19 05/10/23 Rx Allergies Allergy/AdvReac Type Severity Reaction Status Date / Time levothyroxine sodium Allergy Unknown Verified 05/10/23 14:04 [From Synthroid] Penicillins Allergy Swelling Verified 05/10/23 14:04 rivaroxaban [From Xarelto] AdvReac Unknown Verified 05/10/23 14:04 Surgical - Exam Vital Signs Temp Pulse Resp BP Pulse Ox 97.9 F 67 16 154/72 96 05/10/23 14:10 05/10/23 14:10 05/10/23 14:10 05/10/23 14:10 05/10/23 14:10 - General well developed, well nourished, no distress - Eyes PERRL - ENT normal pinna, normal nares - Neck no masses - Respiratory normal expansion - Cardiovascular Rhythm: regular - Abdomen Abdomen: soft, non tender Assessment and Plan Assessment: History of positive colon guard test. We'll perform screening colonoscopy.
--- NOTE | 2023-05-10 15:47 | P.OP ---
Date of Procedure: 05/10/23 Preoperative Diagnosis: Screening colonoscopy Postoperative Diagnosis: Severe diverticulosis Procedure(s) Performed: Colonoscopy Anesthesia: MAC Surgeon: Michael Segura Pathology: none sent Condition: stable Disposition: PACU Description of Procedure: The patient's placed on the endoscopy table in the lateral position. He received IV sedation. Digital rectal exam performed. This revealed no abnormalities. The flexible colonoscope was then placed patient anus and passed throughout the entire colon. The ileocecal valve was visualized. The cecum, ascending and transverse colon normal. In the descending and sigmoid colon with extensive diverticular changes. The scope was then brought back into k the rectum and this appeared normal. Scope withdrawn from patient.
[2023-05-10 16:25] VITALS: BP 137/49; PULSE 59; RESP 17
== END 2023-05-10 16:30 | disposition home or self-care (01) ==
LOC: ORWHC2ENDO 13:32
PROVIDERS: ATTEND Surgery
DX: Z12.11 Encounter for screening for malignant neoplasm of colon (principal); K57.30 Diverticulosis of large intestine without perforation or abscess without bleeding; I10 Essential (primary) hypertension; I48.91 Unspecified atrial fibrillation; E07.9 Disorder of thyroid, unspecified; F17.210 Nicotine dependence, cigarettes, uncomplicated; Z96.651 Presence of right artificial knee joint; Z82.3 Family history of stroke; Z83.3 Family history of diabetes mellitus; Z79.82 Long term (current) use of aspirin; Z79.890 Hormone replacement therapy; Z79.891 Long term (current) use of opiate analgesic; Z79.899 Other long term (current) drug therapy; Z88.0 Allergy status to penicillin; Z88.9 Allergy status to unspecified drugs, medicaments and biological substances
CPT/HCPCS: J2001; J2704; G0121; 45378

== ENCOUNTER → 2023-06-04 | Outpatient (CLI) | payer MEDICARE ==
[2023-06-04 19:12] LABS: T4, Free (Free Thyroxine) 0.65 ng/dL (0.80-1.80)
== END | disposition home or self-care (01) ==
LOC: LABWHC1 12:07
PROVIDERS: ATTEND Psychiatry & Neurology Neurology
DX: R41.3 Other amnesia (principal)
CPT/HCPCS: 36415; 82306; 82607; 82746; 84439; 84443

== ENCOUNTER → 2023-06-14 | Outpatient (CLI) | payer MEDICARE ==
--- NOTE | 2023-06-15 00:42 | MR ---
EXAMINATION TYPE: MR brain wo con DATE OF EXAM: 06/14/2023 8:50 PM CLINICAL INDICATION:Male, 83 years old with history of I67.9 Cerebrovascular disease, CVA. Memory los s COMPARISON: 05/05/2019 TECHNIQUE: Multi planar, multi sequence imaging was performed through the brain including: T1, T2, In version recovery, Diffusion weighted imaging, and gradient echo imaging. No gadolinium was given. FINDINGS: Mild cerebral atrophy with proportional dilation of ventricular system. Along the medial aspect of th e left frontal lobe near the skull apex is a 27 x 21 x 15 mm suspected arachnoid cyst. Scattered foci of high T2 signal intensity are seen within the periventricular white matter. Midline structures summer w no abnormality. Diffusion-weighted imaging shows no evidence of restricted diffusion. The susceptib ility weighted images do not reveal any evidence for micro-hemorrhage. Tortuous vertebral arteries wh ich impresses upon the medulla on the right. The bone marrow signal is within normal limits. Paranasal sinuses and mastoid air cells: Mild scattered paranasal sinus disease. Visualized orbits: Orbital contents are intact. IMPRESSION: 1. No evidence of intracranial mass or acute/subacute infarct. 2. Nonspecific white matter changes, likely secondary to small vessel ischemic disease. 3. There is a tortuous right vertebral artery which impresses upon the medulla oblongata on the right and displaces it leftward. 4. Left medial frontal lobe suspected arachnoid cyst measuring up to 27 mm.
== END | disposition home or self-care (01) ==
LOC: RADMRIMAIN 07:45
PROVIDERS: ATTEND Psychiatry & Neurology Neurology
DX: I67.9 Cerebrovascular disease, unspecified (principal); R90.82 White matter disease, unspecified
CPT/HCPCS: 70551

== ENCOUNTER 2024-01-04 12:51 | Inpatient (IN) | payer MEDICARE ==
[2024-01-04 13:08] LABS: Glucose,Whole Blood 95 mg/dL (70-110)
--- NOTE | 2024-01-04 13:21 | ED ---
Syncope HPI - General Chief Complaint: Syncope Stated Complaint: Fall Source: patient, RN notes reviewed, old records reviewed Mode of arrival: ambulatory Limitations: no limitations - History of Present Illness Initial Comments: This is a 83-year-old male to the ER. He presents today for evaluation of a syncopal event syncopal weakness falls elevated heart rate tachycardia weakness not feeling well. Patient feeling member is here who will bend to the history the patient does have a significant history of drinking alcohol. Patient has no chest pain or shortness of breath patient states he first became dizzy then fell to the ground MD Complaint: loss of consciousness, felt faint, collapsed -: hour(s) Prodromal Symptoms: none -: minutes(s) Injuries Sustained Associated with Event: None Current Symptoms: lightheaded History: previous syncopal episode Context: standing up Treatments Prior to Arrival: none - Related Data Home Medications Medication Instructions Recorded Confirmed Aspirin EC [Ecotrin Low Dose] 81 mg PO DAILY 07/16/15 01/04/24 amLODIPine [Norvasc] 5 mg PO DAILY 10/28/17 01/04/24 Cyanocobalamin (Vitamin B-12) 1,000 mcg PO DAILY 01/04/24 01/04/24 [Vitamin B-12] Furosemide [Lasix] 20 mg PO DAILY 01/04/24 01/04/24 Levothyroxine Sodium [Synthroid] 100 mcg PO DAILY 01/04/24 01/04/24 Mv-Min/Folic/K1/Lycopen/Lutein 2 tab PO DAILY 01/04/24 01/04/24 [Centrum Silver Men Tablet] Vitamin B Complex 1 cap PO TUFR 01/04/24 01/04/24 Previous Rx's Medication Instructions Recorded Citalopram Hydrobromide [CeleXA] 10 mg PO DAILY tab 01/07/24 Metoprolol Tartrate [Lopressor] 50 mg PO BID tab 01/07/24 Pantoprazole Sodium [Protonix] 20 mg PO DAILY #30 tab 01/07/24 Allergies Allergy/AdvReac Type Severity Reaction Status Date / Time levothyroxine sodium Allergy Unknown Verified 01/04/24 16:21 [From Synthroid] Penicillins Allergy Swelling Verified 01/04/24 16:21 rivaroxaban [From Xarelto] AdvReac Unknown Verified 01/04/24 16:21 Review of Systems ROS Statement: Those systems with pertinent positive or pertinent negative responses have been documented in the HPI. ROS Other: All systems not noted in ROS Statement are negative. Past Medical History Past Medical History: Atrial Fibrillation, Hypertension, Thyroid Disorder Additional Past Medical History / Comment(s): NO THYROID GLAND. Has not been in A Fib for over 3 years History of Any Multi-Drug Resistant Organisms: None Reported Past Surgical History: Joint Replacement Additional Past Surgical History / Comment(s): RIGHT KNEE REPLACEMENT 2010 Past Anesthesia/Blood Transfusion Reactions: No Reported Reaction Past Psychological History: No Psychological Hx Reported Smoking Status: Never smoker Past Alcohol Use History: None Reported, Daily Past Drug Use History: None Reported - Past Family History Mother Family Medical History: CVA/TIA Additional Family Medical History / Comment(s): OF STROKE AT 82 Father History Unknown: Yes Family Medical History: Diabetes Mellitus Additional Family Medical History / Comment(s): LATER IN LIFE Brother(s) History Unknown: Yes Additional Family Medical History / Comment(s): BRAIN ANERYSMN General Exam Limitations: no limitations General appearance: alert, in no apparent distress Head exam: Present: atraumatic, normocephalic, normal inspection Eye exam: Present: normal appearance, PERRL, EOMI. Absent: scleral icterus, conjunctival injection, periorbital swelling ENT exam: Present: normal exam, mucous membranes moist Neck exam: Present: normal inspection. Absent: tenderness, meningismus, lymphadenopathy Respiratory exam: Present: normal lung sounds bilaterally. Absent: respiratory distress, wheezes, rales, rhonchi, stridor Cardiovascular Exam: Present: regular rate, normal rhythm, normal heart sounds. Absent: systolic murmur, diastolic murmur, rubs, gallop, clicks GI/Abdominal exam: Present: soft, normal bowel sounds. Absent: distended, tenderness, guarding, rebound, rigid Extremities exam: Present: normal inspection, full ROM, normal capillary refill. Absent: tenderness, pedal edema, joint swelling, calf tenderness Back exam: Present: normal inspection Neurological exam: Present: alert, oriented X3, CN II-XII intact Psychiatric exam: Present: normal affect, normal mood Skin exam: Present: warm, dry, intact, normal color. Absent: rash Course Vital Signs 01/04/24 01/04/24 01/04/24 13:04 13:37 15:05 Temperature 98.1 F Pulse Rate 99 110 H 95 Respiratory 18 18 18 Rate Blood Pressure 102/63 127/91 142/82 O2 Sat by Pulse 97 96 96 Oximetry 01/04/24 01/04/24 01/04/24 16:18 17:43 19:37 Temperature 97.8 F Pulse Rate 71 105 H 115 H Respiratory 18 18 16 Rate Blood Pressure 135/76 147/70 138/80 O2 Sat by Pulse 97 96 97 Oximetry 01/04/24 01/05/24 01/05/24 23:00 00:59 05:03 Temperature 98.3 F Pulse Rate 89 79 88 Respiratory 16 16 16 Rate Blood Pressure 127/76 126/63 110/58 O2 Sat by Pulse 97 95 95 Oximetry 01/05/24 01/05/24 01/05/24 06:33 07:38 08:14 Temperature 98.7 F Pulse Rate 108 H 120 H 81 Respiratory 16 18 16 Rate Blood Pressure 128/72 121/61 120/61 O2 Sat by Pulse 95 98 Oximetry 01/05/24 01/05/24 01/05/24 11:01 13:39 17:45 Temperature Pulse Rate 64 58 L 77 Respiratory 18 18 18 Rate Blood Pressure 101/79 150/94 146/62 O2 Sat by Pulse 97 98 97 Oximetry - Reevaluation(s) Reevaluation #1: 01/04/24 13:35 Records reviewed Reevaluation #2: 01/04/24 16:26 Patient is showing improved hemodynamics Reevaluation #3: 01/04/24 16:26 Patient informed of results questions answered Reevaluation #4: Was pt. sent in by a medical professional or institution (, PA, CIVIL ENGINEERING DRAFTER, urgent care, hospital, or fdc...) When possible be specific @ -no Did you speak to anyone other than the patient for history (EMS, parent, family, police, friend...)? What history was obtained from this source @ -no Did you review nursing and triage notes (agree or disagree)? Why? @ -agree Are old charts reviewed (outside hosp., previous admission, EMS record, old EKG, old radiological studies, urgent care reports/EKG's, fdc records)? Report findings @ -yes Differential Diagnosis (chest pain, altered mental status, abdominal pain women, abdominal pain men, vaginal bleeding, weakness, fever, dyspnea, syncope, headache, dizziness, GI bleed, back pain, seizure, CVA, palpatations, mental health, musculoskeletal)? @ -prior EKG interpreted by me (3pts min.). @ -yes X-rays interpreted by me (1pt min.). @ -yes negative for acute disease CT interpreted by me (1pt min.). @ -CT brain is negative for acute disease U/S interpreted by me (1pt. min.). @ -no What testing was considered but not performed or refused? (CT, X-rays, U/S, labs)? Why? @ -none What meds were considered but not given or refused? Why? @ -none Did you discuss the management of the patient with other professionals (professionals i.e. , PA, CIVIL ENGINEERING DRAFTER, lab, RT, psych nurse, social work case manager, social sciences lecturer, teacher, financial officer, case hardener)? Give summary @ -no Was smoking cessation discussed for >3mins.? @ -no Was critical care preformed (if so, how long)? @ -no Were there social determinants of health that impacted care today? How? (Homelessness, low income, unemployed, alcoholism, drug addiction, transportation, low edu. Level, literacy, decrease access to med. care, usp, rehab)? @ -none Was there de-escalation of care discussed even if they declined (Discuss DNR or withdrawal of care, Hospice)? DNR status @ -no What co-morbidities impacted this encounter? (DM, HTN, Smoking, COPD, CAD, Cancer, CVA, ARF, Chemo, Hep., AIDS, mental health diagnosis, sleep apnea, morbid obesity)? @ -none Was patient admitted / discharged? Hospital course, mention meds given and route, prescriptions, significant lab abnormalities, going to OR and other pe rtinent info. @ - 83 male to ER for eval of syncope syncopal event prior to arrival with head injury, patient is found to be in A-fib with RVR dehydrated here in the emergency department will admit for resuscitation and cardiac monitoring Admitted Undiagnosed new problem with uncertain prognosis? @ -no Drug Therapy requiring intensive monitoring for toxicity (Heparin, Nitro, Insulin, Cardizem)? @ -no Were any procedures done? @ -no Diagnosis/symptom? @ -A-fib with RVR Acute, or Chronic, or Acute on Chronic? @ -Acute Uncomplicated (without systemic symptoms) or Complicated (systemic symptoms)? @ -Complicated Side effects of treatment? @ -no Exacerbation, Progression, or Severe Exacerbation? @ -exacerbation Poses a threat to life or bodily function? How? (Chest pain, USA, MA, pneumonia, PE, COPD, DKA, ARF, appy, cholecystitis, CVA, Diverticulitis, Homicidal, Suicidal, threat to staff... and all critical care pts) @ -yes extremes of age Reevaluation #5: Differential Syncope: Valvular disease, hypertrophic cardiomyopathy, pulmonary embolism, tamponade, tachycardia, bradycardia, MA, hypovolemia, hemorrhage, dissection, anemia, intracranial hemorrhage, seizure, hypoglycemia, carbon monoxide poisoning, this is not meant to be an all-inclusive list. - Consultations Consultation #1: Spoke with [facility] who agrees to admit this patient EKG Findings - EKG Comments: EKG Findings:: EKG is A-fib with RVR 119 QRS 146 QTc 436 - EKG Results: EKG: interpreted by MONICA Medical Decision Making - Medical Decision Making 83 male to ER for eval of syncope syncopal event prior to arrival with head injury, patient is found to be in A-fib with RVR dehydrated here in the emergency department will admit for resuscitation and cardiac monitoring - Lab Data Result diagrams: 01/06/24 07:24 01/10/24 04:36 Lab Results 01/04/24 01/04/24 01/04/24 Range/Units 13:07 13:25 13:25 WBC 11.5 H (3.8-10.6) k/uL RBC 4.61 (4.30-5.90) m/uL Hgb 15.8 (13.0-17.5) gm/dL Hct 47.6 (39.0-53.0) % MCV 103.4 H (80.0-100.0) fL MCH 34.3 (25.0-35.0) pg MCHC 33.2 (31.0-37.0) g/dL RDW 13.4 (11.5-15.5) % Plt Count 182 (150-450) k/uL MPV 8.4 Neutrophils % 86 % Lymphocytes % 6 % Monocytes % 5 % Eosinophils % 1 % Basophils % 1 % Neutrophils # 9.9 H (1.3-7.7) k/uL Lymphocytes # 0.7 L (1.0-4.8) k/uL Monocytes # 0.6 (0-1.0) k/uL Eosinophils # 0.1 (0-0.7) k/uL Basophils # 0.1 (0-0.2) k/uL Macrocytosis Slight PT (10.0-12.5) sec INR (<1.2) APTT (22.0-30.0) sec Sodium 134 L (137-145) mmol/L Potassium 3.8 (3.5-5.1) mmol/L Chloride 100 (98-107) mmol/L Carbon Dioxide 22 (22-30) mmol/L Anion Gap 12 mmol/L BUN 13 (9-20) mg/dL Creatinine 0.79 (0.66-1.25) mg/dL Est GFR (CKD-EPI)AfAm >90 (>60 ml/min/1.73 sqM) Est GFR (CKD-EPI)NonAf 84 (>60 ml/min/1.73 sqM) Glucose 97 (74-99) mg/dL POC Glucose (mg/dL) 95 (70-110) mg/dL POC Glu Topper Press Operator Automatic ID Gonzalez, Linda Lactic Ac Sepsis Rflx Plasma Lactic Acid Wilver (0.7-2.0) mmol/L Calcium 9.3 (8.4-10.2) mg/dL Phosphorus 2.9 (2.5-4.5) mg/dL Magnesium 1.9 (1.6-2.3) mg/dL Total Bilirubin 1.8 H (0.2-1.3) mg/dL AST 64 H (17-59) U/L ALT 30 (4-49) U/L Alkaline Phosphatase 63 (38-126) U/L Troponin I (0.000-0.034) ng/mL NT-Pro-B Natriuret Pep 377 pg/mL Total Protein 7.3 (6.3-8.2) g/dL Albumin 4.3 (3.5-5.0) g/dL TSH 3.670 (0.465-4.680) mIU/L Urine Color Urine Appearance (Clear) Urine pH (5.0-8.0) Ur Specific [place] (1.001-1.035) Urine Protein (Negative) Urine Glucose (UA) (Negative) Urine Ketones (Negative) Urine Blood (Negative) Urine Nitrite (Negative) Urine Bilirubin (Negative) Urine Urobilinogen (<2.0) mg/dL Ur Leukocyte Esterase (Negative) Urine RBC (0-5) /hpf Urine WBC (0-5) /hpf Urine Mucus (None) /hpf Serum Alcohol 43 mg/dL 01/04/24 01/04/24 01/04/24 Range/Units 13:25 13:25 13:25 WBC (3.8-10.6) k/uL RBC (4.30-5.90) m/uL Hgb (13.0-17.5) gm/dL Hct (39.0-53.0) % MCV (80.0-100.0) fL MCH (25.0-35.0) pg MCHC (31.0-37.0) g/dL RDW (11.5-15.5) % Plt Count (150-450) k/uL MPV Neutrophils % % Lymphocytes % % Monocytes % % Eosinophils % % Basophils % % Neutrophils # (1.3-7.7) k/uL Lymphocytes # (1.0-4.8) k/uL Monocytes # (0-1.0) k/uL Eosinophils # (0-0.7) k/uL Basophils # (0-0.2) k/uL Macrocytosis PT 10.0 (10.0-12.5) sec INR 0.9 (<1.2) APTT 23.2 (22.0-30.0) sec Sodium (137-145) mmol/L Potassium (3.5-5.1) mmol/L Chloride (98-107) mmol/L Carbon Dioxide (22-30) mmol/L Anion Gap mmol/L BUN (9-20) mg/dL Creatinine (0.66-1.25) mg/dL Est GFR (CKD-EPI)AfAm (>60 ml/min/1.73 sqM) Est GFR (CKD-EPI)NonAf (>60 ml/min/1.73 sqM) Glucose (74-99) mg/dL POC Glucose (mg/dL) (70-110) mg/dL POC Glu Topper Press Operator Automatic ID Lactic Ac Sepsis Rflx Plasma Lactic Acid Wilver 6.3 H* (0.7-2.0) mmol/L Calcium (8.4-10.2) mg/dL Phosphorus (2.5-4.5) mg/dL Magnesium (1.6-2.3) mg/dL Total Bilirubin (0.2-1.3) mg/dL AST (17-59) U/L ALT (4-49) U/L Alkaline Phosphatase (38-126) U/L Troponin I (0.000-0.034) ng/mL NT-Pro-B Natriuret Pep pg/mL Total Protein (6.3-8.2) g/dL Albumin (3.5-5.0) g/dL TSH (0.465-4.680) mIU/L Urine Color Colorless Urine Appearance Clear (Clear) Urine pH 6.5 (5.0-8.0) Ur Specific [place] 1.004 (1.001-1.035) Urine Protein Negative (Negative) Urine Glucose (UA) Negative (Negative) Urine Ketones Trace H (Negative) Urine Blood Trace H (Negative) Urine Nitrite Negative (Negative) Urine Bilirubin Negative (Negative) Urine Urobilinogen 2.0 (<2.0) mg/dL Ur Leukocyte Esterase Negative (Negative) Urine RBC <1 (0-5) /hpf Urine WBC <1 (0-5) /hpf Urine Mucus Rare H (None) /hpf Serum Alcohol mg/dL 01/04/24 01/04/24 Range/Units 13:25 14:18 WBC (3.8-10.6) k/uL RBC (4.30-5.90) m/uL Hgb (13.0-17.5) gm/dL Hct (39.0-53.0) % MCV (80.0-100.0) fL MCH (25.0-35.0) pg MCHC (31.0-37.0) g/dL RDW (11.5-15.5) % Plt Count (150-450) k/uL MPV Neutrophils % % Lymphocytes % % Monocytes % % Eosinophils % % Basophils % % Neutrophils # (1.3-7.7) k/uL Lymphocytes # (1.0-4.8) k/uL Monocytes # (0-1.0) k/uL Eosinophils # (0-0.7) k/uL Basophils # (0-0.2) k/uL Macrocytosis PT (10.0-12.5) sec INR (<1.2) APTT (22.0-30.0) sec Sodium (137-145) mmol/L Potassium (3.5-5.1) mmol/L Chloride (98-107) mmol/L Carbon Dioxide (22-30) mmol/L Anion Gap mmol/L BUN (9-20) mg/dL Creatinine (0.66-1.25) mg/dL Est GFR (CKD-EPI)AfAm (>60 ml/min/1.73 sqM) Est GFR (CKD-EPI)NonAf (>60 ml/min/1.73 sqM) Glucose (74-99) mg/dL POC Glucose (mg/dL) (70-110) mg/dL POC Glu Topper Press Operator Automatic ID Lactic Ac Sepsis Rflx Y Plasma Lactic Acid Wilver (0.7-2.0) mmol/L Calcium (8.4-10.2) mg/dL Phosphorus (2.5-4.5) mg/dL Magnesium (1.6-2.3) mg/dL Total Bilirubin (0.2-1.3) mg/dL AST (17-59) U/L ALT (4-49) U/L Alkaline Phosphatase (38-126) U/L Troponin I 0.019 (0.000-0.034) ng/mL NT-Pro-B Natriuret Pep pg/mL Total Protein (6.3-8.2) g/dL Albumin (3.5-5.0) g/dL TSH (0.465-4.680) mIU/L Urine Color Urine Appearance (Clear) Urine pH (5.0-8.0) Ur Specific [place] (1.001-1.035) Urine Protein (Negative) Urine Glucose (UA) (Negative) Urine Ketones (Negative) Urine Blood (Negative) Urine Nitrite (Negative) Urine Bilirubin (Negative) Urine Urobilinogen (<2.0) mg/dL Ur Leukocyte Esterase (Negative) Urine RBC (0-5) /hpf Urine WBC (0-5) /hpf Urine Mucus (None) /hpf Serum Alcohol mg/dL - EKG Data -: EKG Interpreted by Me - Radiology Data Radiology results: report reviewed (CT brain C-spine chest and pelvis x-ray negative for acute disease), image reviewed Disposition Clinical Impression: Vasovagal syncope, Syncope due to orthostatic hypotension, Dehydration, Atrial fibrillation with RVR, Dizziness Disposition: ADMITTED IP TO THIS HOSP Condition: Fair Is patient prescribed a controlled substance at d/c from ED?: No Time of Disposition: 16:20
[2024-01-04 13:38] LABS: Basophils # (A) 0.1 k/uL (0-0.2); Basophils % (A) 1 %; Eosinophils # (A) 0.1 k/uL (0-0.7); Eosinophils % (A) 1 %; HCT 47.6 % (39.0-53.0); HGB 15.8 gm/dL (13.0-17.5); Lymphocytes # (A) 0.7 k/uL (1.0-4.8); Lymphocytes % (A) 6 %; MCH 34.3 pg (25.0-35.0); MCHC 33.2 g/dL (31.0-37.0); MCV 103.4 fL (80.0-100.0); Macrocytosis Slight; Mean Platelet Volume 8.4; Monocytes # (A) 0.6 k/uL (0-1.0); Monocytes % (A) 5 %; Neutrophils # (A) 9.9 k/uL (1.3-7.7); Neutrophils % (A) 86 %; Platelet Count 182 k/uL (150-450); RBC 4.61 m/uL (4.30-5.90); RDW 13.4 % (11.5-15.5); WBC 11.5 k/uL (3.8-10.6)
[2024-01-04] MEDS: SODIUM CHLORIDE 0.9% 500 ML 500 ML IV STA (13:38)
[2024-01-04 13:47] LABS: ALT 30 U/L (4-49); AST 64 U/L (17-59); African American GFR (CKD) >90 (>60 ml/min/1.73 sqM); Albumin 4.3 g/dL (3.5-5.0); Alcohol 43 mg/dL; Alkaline Phosphatase 63 U/L (38-126); Anion Gap 12 mmol/L; Blood Urea Nitrogen 13 mg/dL (9-20); Calcium 9.3 mg/dL (8.4-10.2); Carbon Dioxide 22 mmol/L (22-30); Chloride 100 mmol/L (98-107); Glucose 97 mg/dL (74-99); Magnesium 1.9 mg/dL (1.6-2.3); Non-African American GFR(CKD) 84 (>60 ml/min/1.73 sqM); Phosphorus 2.9 mg/dL (2.5-4.5); Potassium 3.8 mmol/L (3.5-5.1); Sodium 134 mmol/L (137-145); Total Bilirubin 1.8 mg/dL (0.2-1.3); Total Protein 7.3 g/dL (6.3-8.2)
[2024-01-04 13:56] LABS: NT-Pro-B-Type Natriuretic Pept 377 pg/mL
[2024-01-04 13:57] LABS: INR 0.9 (<1.2); Partial Thromboplastin Time 23.2 sec (22.0-30.0)
[2024-01-04] MEDS: SODIUM CHLORIDE 0.9% 1,000 ML IV STA ×2 (14:21→15:56)
[2024-01-04 15:28] LABS: Appearance,Urine Clear (Clear); Bilirubin,Urine Negative (Negative); Blood,Urine Trace (Negative); Color,Urine Colorless; Glucose,Urine (UA) Negative (Negative); Ketones,Urine Trace (Negative); Leukocyte Esterase,Urine Negative (Negative); Mucus,Urine Rare /hpf; Nitrite,Urine Negative (Negative); PH, Urine 6.5 (5.0-8.0); Protein,Urine Negative (Negative); RBC,Urine <1 /hpf (0-5); Specific Gravity,Urine 1.004 (1.001-1.035); WBC,Urine <1 /hpf (0-5)
--- NOTE | 2024-01-04 15:42 | XR ---
EXAMINATION TYPE: XR pelvis AP view DATE OF EXAM: 01/04/2024 COMPARISON: None HISTORY: Pain after fall TECHNIQUE: AP pelvis FINDINGS: No acute fractures are evident. Symphysis pubis and sacroiliac joints are normal. Femoral h meli articulate with the acetabulum. Mild joint space narrowing may be present. Normal colonic bowel gas present. IMPRESSION: 1. No acute posttraumatic changes AP pelvis
--- NOTE | 2024-01-04 15:44 | XR ---
EXAMINATION TYPE: XR chest 1V DATE OF EXAM: 01/04/2024 COMPARISON: 05/05/2019 INDICATION: Fall pain TECHNIQUE: Single frontal view of the chest is obtained. FINDINGS: The heart size is normal. The pulmonary vasculature is normal. There may be some mild pleural plaquing suspected along the right lung base. This was present previou sly and appears similar. IMPRESSION: 1. Suspected pleural plaquing right lung base similar to prior study. 2. No acute process radiographically apparent.
[2024-01-04] MEDS: DILTIAZEM 125 MG in SODIUM CHLORIDE 0.9% 100 ML IV SCH (15:58)
[2024-01-04] MEDS: DILTIAZEM DRIP BOLUS FROM BAG 1 MG SOLN IV ONE (15:59)
[2024-01-04] MEDS ORDERED: NALOXONE 0.4 MG/ML 1 ML VIAL IV PRN (16:21)
[2024-01-04] MEDS ORDERED: ONDANSETRON 4 MG/2 ML VIAL IVP PRN (16:21)
[2024-01-04] MEDS ORDERED: LORazepam 2 MG/ML INJ IV PRN ×3 (16:21)
[2024-01-04] MEDS ORDERED: HYDROmorphone 1 MG/ML 1 ML SYRINGE IVP PRN (16:21)
[2024-01-04] MEDS ORDERED: LORazepam 1 MG TAB PO PRN ×3 (16:21)
--- NOTE | 2024-01-04 16:30 | CT ---
EXAMINATION TYPE: CT brain cspine wo con CT DLP: 1613.4 mGycm, Automated exposure control for dose reduction was used. DATE OF EXAM: 01/04/2024 4:15 PM COMPARISON: 05/05/2019. CLINICAL INDICATION:Male, 83 years old with history of fall; FALL TECHNIQUE: Brain: Multiple axial CT images of the brain were obtained without IV contrast. Cspine: Axial CT images from the skull base to the inferior aspect of T2 we obtained without intraven ous contrast. Coronal and sagittal reformatted images were also reviewed. . FINDINGS: Brain: Extra-axial spaces: No abnormal extra-axial fluid collections. Ventricular system: Dilatation in proportion to cerebral atrophy. Cerebral parenchyma: Cerebral atrophy. No acute intraparenchymal hemorrhage or mass effect. The rubio -white junction is well differentiated. Scattered hypoattenuating areas are seen within the white mat ter. Cerebellum: Unremarkable. Mass effect: No evidence of midline shift. Intracranial vasculature: Atherosclerotic calcifications of the intracranial vessels. Soft tissues: Normal. Calvarium/osseous structures: No depressed skull fracture. Paranasal sinuses and mastoid air cells: Clear. Visualized orbits: Orbital contents are intact. Cervical spine: Fracture: None. Osseous structures: Multilevel degenerative disc disease changes with endplate spurring and disc oste ophyte complex's. Vertebral alignment: Within normal limits. Spinal canal/Neural Foramina: No evidence of significant spinal canal narrowing. No evidence for sign ificant neural foraminal stenosis. Neck soft tissues: Prevertebral soft tissues are within normal limits. Other: The airway is patent. The lung apices are clear. IMPRESSION: 1. No acute intracranial process. 2. Nonspecific white matter changes, likely secondary to chronic small vessel ischemic disease. 3. No evidence of cervical spine fracture. 4. Mild multilevel degenerative disc disease.
[2024-01-04] MEDS: SODIUM CHLORIDE 0.9% 1,000 ML IV SCH (17:38)
[2024-01-05] MEDS: PANTOPRAZOLE 40 MG/10 ML VIAL IV SCH (08:18)
[2024-01-05] MEDS: METOPROLOL TARTRATE 50 MG TAB PO SCH (08:36)
--- NOTE | 2024-01-05 10:02 | P.CRDCN ---
History of Present Illness History of present illness: HISTORY OF PRESENT ILLNESS: This is a 83-year-old female with a past medical history significant for hypertension, hypothyroidism, atrial fibrillation, and alcohol abuse. Patient used to follow in the office with Dr. Asencio but has not been seen since 2019. We have been asked to see the patient in consultation for A-fib with RVR. Patient examined at the bedside in the emergency room. Patient states yesterday he was at home and was drinking quite heavily. He states that he ended up falling. He states he fell twice at home. He states the first time he was sitting down for a long period of time and then when he stood up to walk he fell. The patient thinks some of his symptoms may be due to his increased alcohol intake. The patient was found to be in A-fib with RVR. At the time of examination he remains in atrial fibrillation with a heart rate in the 90s. He is currently on IV Cardizem. He currently denies any chest pain or pressure. He denies any shortness of breath. DIAGNOSTICS: - EKG reveals A-fib with RVR - Chest xray suspected pleural plaquing right lung base similar to prior study. Negative for acute process. - Laboratory data: WBC 11.5. Hemoglobin 15.8. Platelet count 182. Sodium 134. Potassium 3.8. BUN 13. Creatinine 0.79. Lactic acid 6.3. Repeat 1.9. proBNP 377. Troponin negative x 1. TSH 3.670. - Current home cardiac medications include Lasix 20 mg daily, aspirin 81 mg daily, amlodipine 5 mg daily, valsartan 320 mg daily. - Most recent echocardiogram obtained in April 2019 revealed ejection fraction 45 to 50%, mild MR, mild TR REVIEW OF SYSTEMS: At the time of my exam: CONSTITUTIONAL: Denies fever or chills. HEENT: Denies blurred vision, vision changes, or eye pain. Denies hemoptysis CARDIOVASCULAR: Denies chest pain. Denies orthopnea. Denies PND. Denies palpitations RESPIRATORY: Denies shortness of breath. GASTROINTESTINAL: Denies abdominal pain. Denies nausea or vomiting. HEMATOLOGIC: Denies bleeding disorders. GENITOURINARY: Denies any blood in urine. SKIN: Denies pruitis. Denies rash. PHYSICAL EXAM: VITAL SIGNS: Reviewed. GENERAL: Well-developed in no acute distress. HEENT: Head is normocephalic. Pupils are equal, round. Sclerae anicteric. Mucous membranes of the mouth are moist. Neck supple. No JVD or thyromegaly LUNGS: Respirations even and unlabored. Lungs essentially clear to auscultation bilaterally. HEART: Irregular rate and rhythm. S1 and S2 heard. ABDOMEN: Soft. Nondistended. Nontender. EXTREMITIES: Normal range of motion. No clubbing or cyanosis. Peripheral pulses intact. No lower extremity edema NEUROLOGIC: Awake and alert. Oriented x 3. ASSESSMENT: Status post fall with suspected syncope Acute alcohol intoxication Paroxysmal atrial fibrillation with RVR History of alcohol abuse Hypertension Hypothyroidism PLAN: Obtain 2D echo to assess cardiac structure and function TSH checked and within normal limits Begin metoprolol tartrate 50 mg twice a day Wean off Cardizem drip as heart rate will tolerate Resume home cardiac medications including amlodipine. Hold valsartan as blood pressures are in the 110s this morning. Due to patient's reported heavy alcohol use and falls, patient is at high risk to begin anticoagulation. Discussed anticoagulation with patient and if he is able to remain sober and has no further episodes of syncope or falling, will consider initiating anticoagulation on outpatient basis. Continue telemetry monitoring Abstinence from alcohol recommended Further recommendations pending patient course Nurse practitioner note has been reviewed by physician. Signing provider agrees with the documented findings, assessment, and plan of care documented by [employer] as a scribe. Past Medical History Past Medical History: Atrial Fibrillation, Hypertension, Thyroid Disorder Additional Past Medical History / Comment(s): NO THYROID GLAND. Has not been in A Fib for over 3 years History of Any Multi-Drug Resistant Organisms: None Reported Past Surgical History: Joint Replacement Additional Past Surgical History / Comment(s): RIGHT KNEE REPLACEMENT 2009 Past Anesthesia/Blood Transfusion Reactions: No Reported Reaction Past Psychological History: No Psychological Hx Reported Smoking Status: Never smoker Past Alcohol Use History: None Reported, Daily Past Drug Use History: None Reported - Past Family History Mother Family Medical History: CVA/TIA Additional Family Medical History / Comment(s): OF STROKE AT 82 Father History Unknown: Yes Family Medical History: Diabetes Mellitus Additional Family Medical History / Comment(s): LATER IN LIFE Brother(s) History Unknown: Yes Additional Family Medical History / Comment(s): BRAIN ANERYSMN Medications and Allergies Home Medications Medication Instructions Recorded Confirmed Type Aspirin EC [Ecotrin Low Dose] 81 mg PO DAILY 07/16/15 01/04/24 History amLODIPine [Norvasc] 5 mg PO DAILY 10/28/17 01/04/24 History Valsartan [Diovan] 320 mg PO DAILY 05/05/19 01/04/24 History Cyanocobalamin (Vitamin B-12) 1,000 mcg PO DAILY 01/04/24 01/04/24 History [Vitamin B-12] Furosemide [Lasix] 20 mg PO DAILY 01/04/24 01/04/24 History Levothyroxine Sodium [Synthroid] 100 mcg PO DAILY 01/04/24 01/04/24 History Mv-Min/Folic/K1/Lycopen/Lutein 2 tab PO DAILY 01/04/24 01/04/24 History [Centrum Silver Men Tablet] Vitamin B Complex 1 cap PO TUFR 01/04/24 01/04/24 History Allergies Allergy/AdvReac Type Severity Reaction Status Date / Time levothyroxine sodium Allergy Unknown Verified 01/04/24 16:21 [From Synthroid] Penicillins Allergy Swelling Verified 01/04/24 16:21 rivaroxaban [From Xarelto] AdvReac Unknown Verified 01/04/24 16:21 Physical Exam Vitals: Vital Signs Temp Pulse Resp BP Pulse Ox 01/05/24 08:14 81 16 120/61 01/05/24 07:38 98.7 F 120 H 18 121/61 98 01/05/24 06:33 108 H 16 128/72 95 01/05/24 05:03 98.3 F 88 16 110/58 95 01/05/24 00:59 79 16 126/63 95 01/04/24 23:00 89 16 127/76 97 01/04/24 19:37 97.8 F 115 H 16 138/80 97 01/04/24 17:43 105 H 18 147/70 96 01/04/24 16:18 71 18 135/76 97 01/04/24 15:05 95 18 142/82 96 01/04/24 13:37 110 H 18 127/91 96 01/04/24 13:04 98.1 F 99 18 102/63 97 Results 01/04/24 13:25 01/04/24 13:25 Cardiac Enzymes 01/04/24 01/04/24 Range/Units 13:25 13:25 AST 64 H (17-59) U/L Troponin I 0.019 (0.000-0.034) ng/mL Coagulation 01/04/24 Range/Units 13:25 PT 10.0 (10.0-12.5) sec APTT 23.2 (22.0-30.0) sec CBC 01/04/24 Range/Units 13:25 WBC 11.5 H (3.8-10.6) k/uL RBC 4.61 (4.30-5.90) m/uL Hgb 15.8 (13.0-17.5) gm/dL Hct 47.6 (39.0-53.0) % Plt Count 182 (150-450) k/uL Comprehensive Metabolic Panel 01/04/24 Range/Units 13:25 Sodium 134 L (137-145) mmol/L Potassium 3.8 (3.5-5.1) mmol/L Chloride 100 (98-107) mmol/L Carbon Dioxide 22 (22-30) mmol/L BUN 13 (9-20) mg/dL Creatinine 0.79 (0.66-1.25) mg/dL Glucose 97 (74-99) mg/dL Calcium 9.3 (8.4-10.2) mg/dL AST 64 H (17-59) U/L ALT 30 (4-49) U/L Alkaline Phosphatase 63 (38-126) U/L Total Protein 7.3 (6.3-8.2) g/dL Albumin 4.3 (3.5-5.0) g/dL Current Medications Generic Name Dose Route Start Last Admin Trade Name Freq PRN Reason Stop Dose Admin Hydromorphone HCl 1 mg 01/04/24 16:21 Hydromorphone 1 Mg/Ml 1 Ml Syringe IVP Q3HR PRN Severe Pain (Scale 7 to 10) Diltiazem HCl 125 mg/ Sodium 125 mls @ 5 mls/hr 01/04/24 15:30 01/04/24 15:58 Chloride IV 5 mg/hr .Q24H ELIE 5 mls/hr Administration 5 MG/HR Sodium Chloride 1,000 mls @ 75 mls/hr 01/04/24 16:30 01/05/24 05:04 Saline 0.9% IV 75 mls/hr .[id number] ELIE Administration Lorazepam 0.5 mg 01/04/24 16:21 Lorazepam 0.5 Mg Tab PO Q4HR PRN Ciwa 4 To 5 Lorazepam 2 mg 01/04/24 16:21 Lorazepam 1 Mg Tab PO Q2HR PRN Ciwa 10 or greater Lorazepam 1 mg 01/04/24 16:21 Lorazepam 1 Mg Tab PO Q4HR PRN Ciwa 6 To 7 Lorazepam 2 mg 01/04/24 16:21 Lorazepam 1 Mg Tab PO Q3HR PRN Ciwa 8 To 9 Lorazepam 2 mg 01/04/24 16:21 Lorazepam 2 Mg/Ml Inj IV 01/06/24 16:22 Q10M PRN CIWA 16 or higher Lorazepam 1 mg 01/04/24 16:21 Lorazepam 2 Mg/Ml Inj IV Q2HR PRN CIWA 8 or 9 Lorazepam 1 mg 01/04/24 16:21 Lorazepam 2 Mg/Ml Inj IV Q1HR PRN CIWA 10 to 15 Lorazepam 1 mg 01/04/24 16:21 Lorazepam 1 Mg Tab PO Q1HR PRN Alcohol Withdrawal Metoprolol Tartrate 50 mg 01/05/24 09:00 01/05/24 08:36 Metoprolol Tartrate 50 Mg Tab PO 50 mg BID ELIE Administration Naloxone HCl 0.2 mg 01/04/24 16:21 Naloxone 0.4 Mg/Ml 1 Ml Vial IV Q2M PRN Opioid Reversal Ondansetron HCl 4 mg 01/04/24 16:21 Ondansetron 4 Mg/2 Ml Vial IVP Q8HR PRN Nausea And Vomiting Pantoprazole Sodium 40 mg 01/05/24 09:00 01/05/24 08:18 Pantoprazole 40 Mg/10 Ml Vial IV 40 mg DAILY ELIE Administration 01/04/24 13:25 01/04/24 13:25
[2024-01-05] MEDS: FUROSEMIDE 20 MG TAB PO SCH (11:04)
[2024-01-05] MEDS: ASPIRIN 81 MG PO SCH (11:04)
[2024-01-05] MEDS: amLODIPine 5 MG TAB PO SCH (11:19)
[2024-01-05 12:04] LABS: ALT 27 U/L (4-49); AST 63 U/L (17-59); African American GFR (CKD) >90 (>60 ml/min/1.73 sqM); Albumin 3.3 g/dL (3.5-5.0); Alkaline Phosphatase 51 U/L (38-126); Anion Gap 7 mmol/L; Blood Urea Nitrogen 12 mg/dL (9-20); Calcium 8.6 mg/dL (8.4-10.2); Carbon Dioxide 23 mmol/L (22-30); Chloride 106 mmol/L (98-107); Glucose 104 mg/dL (74-99); Magnesium 1.9 mg/dL (1.6-2.3); Non-African American GFR(CKD) 88 (>60 ml/min/1.73 sqM); Phosphorus 2.2 mg/dL (2.5-4.5); Potassium 3.7 mmol/L (3.5-5.1); Sodium 136 mmol/L (137-145); Total Bilirubin 1.8 mg/dL (0.2-1.3)
[2024-01-05 12:37] LABS: Basophils # (A) 0.1 k/uL (0-0.2); Basophils % (A) 1 %; Eosinophils # (A) 0.1 k/uL (0-0.7); Eosinophils % (A) 1 %; HGB 13.3 gm/dL (13.0-17.5); Lymphocytes # (A) 0.8 k/uL (1.0-4.8); Lymphocytes % (A) 11 %; MCH 34.7 pg (25.0-35.0); MCHC 33.3 g/dL (31.0-37.0); MCV 104.2 fL (80.0-100.0); Macrocytosis Slight; Mean Platelet Volume 9.8; Monocytes # (A) 0.6 k/uL (0-1.0); Monocytes % (A) 8 %; Neutrophils # (A) 6.1 k/uL (1.3-7.7); Neutrophils % (A) 79 %; Platelet Count 162 k/uL (150-450); RBC 3.84 m/uL (4.30-5.90); RDW 13.4 % (11.5-15.5); WBC 7.8 k/uL (3.8-10.6)
--- NOTE | 2024-01-05 12:47 | P.HPIM ---
History of Present Illness 81-year-old pleasant male came in after syncopal episode patient has been drinking heavily. Patient does have history of atrial fibrillation found to be in A-fib with rapid flow rate patient is presently on Cardizem which is being transitioned to oral beta-yary. Patient has been depressed and quite weak lately patient fell twice recently. Chest x-ray did not show any significant abnormality patient does have history of congestive heart failure with EF of around 40 to 50% mild MR and mild TR. Patient also appears to be hypervolemic clinically patient was started on IV fluids. Patient had elevated lactic acid on admission and his proBNP is only 377. REVIEW OF SYSTEMS: CONSTITUTIONAL: No fever, no malaise, no fatigue. HEENT: No recent visual problems or hearing problems. Denied any sore throat. CARDIOVASCULAR: No chest pain, orthopnea, PND, no palpitations, no syncope. PULMONARY: No shortness of breath, no cough, no hemoptysis. GASTROINTESTINAL: No diarrhea, no nausea, no vomiting, no abdominal pain. NEUROLOGICAL: No headaches, no weakness, no numbness. HEMATOLOGICAL: Denies any bleeding or petechiae. GENITOURINARY: Denies any burning micturition, frequency, or urgency. MUSCULOSKELETAL/RHEUMATOLOGICAL: Denies any joint pain, swelling, or any muscle pain. ENDOCRINE: Denies any polyuria or polydipsia. The rest of the 14-point review of systems is negative. PHYSICAL EXAMINATION: GENERAL: The patient is alert and oriented x3, not in any acute distress. Well developed, well nourished. HEENT: Pupils are round and equally reacting to light. EOMI. No scleral icterus. No conjunctival pallor. Normocephalic, atraumatic. No pharyngeal erythema. No thyromegaly. CARDIOVASCULAR: S1 and S2 present. No murmurs, rubs, or gallops. PULMONARY: Chest is clear to auscultation, no wheezing or crackles. ABDOMEN: Soft, nontender, nondistended, normoactive bowel sounds. No palpable organomegaly. MUSCULOSKELETAL: No joint swelling or deformity. EXTREMITIES: No cyanosis, clubbing, or pedal edema. NEUROLOGICAL: Gross neurological examination did not reveal any focal deficits. SKIN: No rashes. Assessment and plan -Fall and syncope: Probably secondary to atrial fibrillation continue Cardizem wean off IV Cardizem transition to oral beta-yary patient is on anticoagulation which will be continued -Alcohol intoxication -Alcohol withdrawal patient will be on Ativan [facility] protocol for this and patient is willing to quit alcohol completely -Paroxysmal atrial fibrillation with rapid ventricular rate rate -Lactic acidosis secondary to hypovolemia and dehydration continue with IV fl uids hold off on Lasix. -Hypertension patient is hypotensive and had a syncopal episode hold off lima sartan, Lasix continue with IV fluids -Generalized weakness secondary to age-related muscle atrophy and chronic alcoholism physical therapy Occupational Therapy evaluation -Congestive heart failure chronic systolic function with mildly decreased EF patient is not in acute exacerbation and patient is actually hypovolemic. DVT prophylaxis: On anticoagulation which will be continued Past Medical History Past Medical History: Atrial Fibrillation, Hypertension, Thyroid Disorder Additional Past Medical History / Comment(s): NO THYROID GLAND. Has not been in A Fib for over 3 years History of Any Multi-Drug Resistant Organisms: None Reported Past Surgical History: Joint Replacement Additional Past Surgical History / Comment(s): RIGHT KNEE REPLACEMENT 2009 Past Anesthesia/Blood Transfusion Reactions: No Reported Reaction Past Psychological History: No Psychological Hx Reported Smoking Status: Never smoker Past Alcohol Use History: None Reported, Daily Past Drug Use History: None Reported - Past Family History Mother Family Medical History: CVA/TIA Additional Family Medical History / Comment(s): OF STROKE AT 82 Father History Unknown: Yes Family Medical History: Diabetes Mellitus Additional Family Medical History / Comment(s): LATER IN LIFE Brother(s) History Unknown: Yes Additional Family Medical History / Comment(s): BRAIN ANERYSMN Medications and Allergies Home Medications Medication Instructions Recorded Confirmed Type Aspirin EC [Ecotrin Low Dose] 81 mg PO DAILY 07/16/15 01/04/24 History amLODIPine [Norvasc] 5 mg PO DAILY 10/28/17 01/04/24 History Valsartan [Diovan] 320 mg PO DAILY 05/05/19 01/04/24 History Cyanocobalamin (Vitamin B-12) 1,000 mcg PO DAILY 01/04/24 01/04/24 History [Vitamin B-12] Furosemide [Lasix] 20 mg PO DAILY 01/04/24 01/04/24 History Levothyroxine Sodium [Synthroid] 100 mcg PO DAILY 01/04/24 01/04/24 History Mv-Min/Folic/K1/Lycopen/Lutein 2 tab PO DAILY 01/04/24 01/04/24 History [Centrum Silver Men Tablet] Vitamin B Complex 1 cap PO TUFR 01/04/24 01/04/24 History Allergies Allergy/AdvReac Type Severity Reaction Status Date / Time levothyroxine sodium Allergy Unknown Verified 01/04/24 16:21 [From Synthroid] Penicillins Allergy Swelling Verified 01/04/24 16:21 rivaroxaban [From Xarelto] AdvReac Unknown Verified 01/04/24 16:21 Physical Exam Vitals: Vital Signs Temp Pulse Resp BP Pulse Ox 01/05/24 11:01 64 18 101/79 97 01/05/24 08:14 81 16 120/61 01/05/24 07:38 98.7 F 120 H 18 121/61 98 01/05/24 06:33 108 H 16 128/72 95 01/05/24 05:03 98.3 F 88 16 110/58 95 01/05/24 00:59 79 16 126/63 95 01/04/24 23:00 89 16 127/76 97 01/04/24 19:37 97.8 F 115 H 16 138/80 97 01/04/24 17:43 105 H 18 147/70 96 01/04/24 16:18 71 18 135/76 97 01/04/24 15:05 95 18 142/82 96 01/04/24 13:37 110 H 18 127/91 96 01/04/24 13:04 98.1 F 99 18 102/63 97 Results CBC & Chem 7: 01/05/24 10:41 01/05/24 10:41 Labs: Abnormal Lab Results - Last 24 Hours (Table) 01/04/24 01/04/24 01/04/24 Range/Units 13:25 13:25 13:25 WBC 11.5 H (3.8-10.6) k/uL RBC (4.30-5.90) m/uL MCV 103.4 H (80.0-100.0) fL Neutrophils # 9.9 H (1.3-7.7) k/uL Lymphocytes # 0.7 L (1.0-4.8) k/uL Sodium 134 L (137-145) mmol/L Glucose (74-99) mg/dL Plasma Lactic Acid Wilver (0.7-2.0) mmol/L Phosphorus (2.5-4.5) mg/dL Total Bilirubin 1.8 H (0.2-1.3) mg/dL AST 64 H (17-59) U/L Total Protein (6.3-8.2) g/dL Albumin (3.5-5.0) g/dL Urine Ketones Trace H (Negative) Urine Blood Trace H (Negative) Urine Mucus Rare H (None) /hpf 01/04/24 01/05/24 01/05/24 Range/Units 13:25 10:41 10:41 WBC (3.8-10.6) k/uL RBC 3.84 L (4.30-5.90) m/uL MCV 104.2 H (80.0-100.0) fL Neutrophils # (1.3-7.7) k/uL Lymphocytes # 0.8 L (1.0-4.8) k/uL Sodium 136 L (137-145) mmol/L Glucose 104 H (74-99) mg/dL Plasma Lactic Acid Wilver 6.3 H* (0.7-2.0) mmol/L Phosphorus 2.2 L (2.5-4.5) mg/dL Total Bilirubin 1.8 H (0.2-1.3) mg/dL AST 63 H (17-59) U/L Total Protein 6.0 L (6.3-8.2) g/dL Albumin 3.3 L (3.5-5.0) g/dL Urine Ketones (Negative) Urine Blood (Negative) Urine Mucus (None) /hpf
[2024-01-05] MEDS: CITALOPRAM HYDROBROMIDE 10 MG TAB PO SCH (13:41)
[2024-01-06] MEDS: LORazepam 0.5 MG TAB PO PRN (02:58)
[2024-01-06] MEDS: LEVOTHYROXINE 100 MCG TAB PO SCH (05:18)
[2024-01-06 07:50] LABS: HCT 42.6 % (39.0-53.0); HGB 14.1 gm/dL (13.0-17.5); MCH 34.8 pg (25.0-35.0); MCV 105.5 fL (80.0-100.0); Macrocytosis Slight; Mean Platelet Volume 8.2; Platelet Count 166 k/uL (150-450); RBC 4.04 m/uL (4.30-5.90); RDW 13.2 % (11.5-15.5); WBC 7.5 k/uL (3.8-10.6)
[2024-01-06 08:03] LABS: African American GFR (CKD) >90 (>60 ml/min/1.73 sqM); Anion Gap 15 mmol/L; Blood Urea Nitrogen 11 mg/dL (9-20); Calcium 9.1 mg/dL (8.4-10.2); Carbon Dioxide 17 mmol/L (22-30); Chloride 103 mmol/L (98-107); Glucose 120 mg/dL (74-99); Magnesium 1.7 mg/dL (1.6-2.3); Non-African American GFR(CKD) >90 (>60 ml/min/1.73 sqM); Potassium 3.6 mmol/L (3.5-5.1); Sodium 135 mmol/L (137-145)
[2024-01-06] MEDS: ACETAMINOPHEN TAB 325 MG TAB PO PRN (09:29)
--- NOTE | 2024-01-06 12:48 | P.PN ---
Subjective HISTORY OF PRESENT ILLNESS: This is a 83-year-old female with a past medical history significant for hypertension, hypothyroidism, atrial fibrillation, and alcohol abuse. Patient used to follow in the office with Dr. Asencio but has not been seen since 2019. We have been asked to see the patient in consultation for A-fib with RVR. Patient examined at the bedside in the emergency room. Patient states yesterday he was at home and was drinking quite heavily. He states that he ended up falling. He states he fell twice at home. He states the first time he was sitting down for a long period of time and then when he stood up to walk he fell. The patient thinks some of his symptoms may be due to his increased alcohol intake. The patient was found to be in A-fib with RVR. At the time of examination he remains in atrial fibrillation with a heart rate in the 90s. He is currently on IV Cardizem. He currently denies any chest pain or pressure. He denies any shortness of breath. DIAGNOSTICS: - EKG reveals A-fib with RVR - Chest xray suspected pleural plaquing right lung base similar to prior study. Negative for acute process. - Laboratory data: WBC 11.5. Hemoglobin 15.8. Platelet count 182. Sodium 134. Potassium 3.8. BUN 13. Creatinine 0.79. Lactic acid 6.3. Repeat 1.9. proBNP 377. Troponin negative x 1. TSH 3.670. - Current home cardiac medications include Lasix 20 mg daily, aspirin 81 mg daily, amlodipine 5 mg daily, valsartan 320 mg daily. - Most recent echocardiogram obtained in April 2019 revealed ejection fraction 45 to 50%, mild MR, mild TR 01/06/2024 Patient examined this morning at the bedside. Patient currently denies chest pain or pressure. He denies shortness of breath. He remains in atrial fibrillation with controlled ventricular rate in the 70s. PHYSICAL EXAM: VITAL SIGNS: Reviewed. GENERAL: Well-developed in no acute distress. HEENT: Head is normocephalic. Pupils are equal, round. Sclerae anicteric. Mucous membranes of the mouth are moist. Neck supple. No JVD or thyromegaly LUNGS: Respirations even and unlabored. Lungs essentially clear to auscultation bilaterally. HEART: Irregular rate and rhythm. S1 and S2 heard. ABDOMEN: Soft. Nondistended. Nontender. EXTREMITIES: Normal range of motion. No clubbing or cyanosis. Peripheral pulses intact. No lower extremity edema NEUROLOGIC: Awake and alert. Oriented x 3. ASSESSMENT: Status post fall with suspected syncope Acute alcohol intoxication Paroxysmal atrial fibrillation with RVR History of alcohol abuse Hypertension Hypothyroidism PLAN: 2D echo ordered. Await results. Continue current dose of metoprolol Continue home cardiac medications including amlodipine. Hold valsartan as blood pressures are in the 110-120s this morning. Due to patient's reported heavy alcohol use and falls, patient is at high risk to begin anticoagulation. Discussed anticoagulation with patient and if he is able to remain sober and has no further episodes of syncope or falling, will consider initiating anticoagulation on outpatient basis. Continue telemetry monitoring Abstinence from alcohol recommended Further recommendations pending patient course Nurse practitioner note has been reviewed by physician. Signing provider agrees with the documented findings, assessment, and plan of care documented by [employer] as a scribe. Objective - Vital Signs Vital signs: Vital Signs Temp 98.1 F 01/06/24 08:00 Pulse 68 01/06/24 11:19 Resp 16 01/06/24 11:19 BP 124/74 01/06/24 11:19 Pulse Ox 94 L 01/06/24 11:19 FiO2 21 01/06/24 09:08 Intake & Output 01/05/24 01/06/24 01/06/24 18:59 06:59 18:59 Intake Total 480 Output Total 1 Balance -1 480 Weight 80.2 kg Intake: Oral 480 Output: Urine 1 Other: Voiding Method Toilet Toilet # Voids 1 2 # Bowel Movements 1 - Labs CBC & Chem 7: 01/06/24 07:24 01/06/24 07:24 Labs: Abnormal Lab Results - Last 24 Hours (Table) 01/06/24 01/06/24 Range/Units 07:24 07:24 RBC 4.04 L (4.30-5.90) m/uL MCV 105.5 H (80.0-100.0) fL Sodium 135 L (137-145) mmol/L Carbon Dioxide 17 L (22-30) mmol/L Creatinine 0.64 L (0.66-1.25) mg/dL Glucose 120 H (74-99) mg/dL
[2024-01-06] MEDS ORDERED: Magnesium Replacement Protocol 1 EACH MISC MISCELLANE PRN (14:36)
[2024-01-06] MEDS: MAGNESIUM SULFATE-D5W PMX 1 GM in DEXTROSE/WATER 1 100ML.BAG IVPB ONE (14:50)
--- NOTE | 2024-01-06 15:35 | P.PN ---
Subjective Progress Note Date: 01/06/24 81-year-old pleasant male came in after syncopal episode patient has been drinking heavily. Patient does have history of atrial fibrillation found to be in A-fib with rapid flow rate patient is presently on Cardizem which is being transitioned to oral beta-yary. Patient has been depressed and quite weak lately patient fell twice recently. Chest x-ray did not show any significant abnormality patient does have history of congestive heart failure with EF of around 40 to 50% mild MR and mild TR. Patient also appears to be hypervolemic clinically patient was started on IV fluids. Patient had elevated lactic acid on admission and his proBNP is only 377. 01/06/2024 Patient is evaluated today in follow-up resting in bed. Patient remains in atrial fibrillation however now with controlled heart rate. Echocardiogram is taken and currently pending. Patient is now off of the Cardizem and this co ntinued on oral Lopressor. Continues on IV Ativan CIWA protocol. Does not appear to be actively withdrawing at this time. He will need subacute rehab on discharge. Magnesium 1.7 REVIEW OF SYSTEMS: CONSTITUTIONAL: No fever, no malaise, no fatigue. HEENT: No recent visual problems or hearing problems. Denied any sore throat. CARDIOVASCULAR: No chest pain, orthopnea, PND, no palpitations, no syncope. PULMONARY: No shortness of breath, no cough, no hemoptysis. GASTROINTESTINAL: No diarrhea, no nausea, no vomiting, no abdominal pain. NEUROLOGICAL: No headaches, no weakness, no numbness. PHYSICAL EXAMINATION: GENERAL: The patient is alert and oriented x3, not in any acute distress. Well developed, well nourished. HEENT: Pupils are round and equally reacting to light. EOMI. No scleral icterus. No conjunctival pallor. Normocephalic, atraumatic. No pharyngeal erythema. No thyromegaly. CARDIOVASCULAR: S1 and S2 present. No murmurs, rubs, or gallops. PULMONARY: Chest is clear to auscultation, no wheezing or crackles. ABDOMEN: Soft, nontender, nondistended, normoactive bowel sounds. No palpable organomegaly. MUSCULOSKELETAL: No joint swelling or deformity. EXTREMITIES: No cyanosis, clubbing, or pedal edema. NEUROLOGICAL: Gross neurological examination did not reveal any focal deficits. SKIN: No rashes. Assessment and plan -Fall and syncope: Probably secondary to atrial fibrillation patient is now off of Cardizem and continues on oral metoprolol cardiology recommending to hold off on anticoagulation at this time as patient is a high risk for fall secondary to his alcoholism. -Alcohol intoxication -Alcohol withdrawal patient will be on Ativan CIWA protocol for this and patient is willing to quit alcohol completely -Paroxysmal atrial fibrillation with rapid ventricular rate rate, now rate is controlled -Lactic acidosis secondary to hypovolemia and dehydration continue with IV fluids hold off on Lasix. -Hypertension patient is hypotensive and had a syncopal episode hold off valsartan, Lasix continue with IV fluids -Generalized weakness secondary to age-related muscle atrophy and chronic alcoholism physical therapy Occupational Therapy evaluation recommending subacute rehab on discharge -Congestive heart failure chronic systolic function with mildly decreased EF patient is not in acute exacerbation and patient is actually hypovolemic. DVT prophylaxis: On anticoagulation which will be continued The impression and plan of care has been dictated by Aliyah Xiao, Nurse Practitioner as directed. Dr. Ysabel MD I have performed a history and physical examination and medical decision making of this patient, discussed the same with the dictator, and agree with the dictators assessment and plan as written, documented as a scribe. Based on total visit time, I have performed more than 50% of this visit. Objective - Vital Signs Vital signs: Vital Signs Temp 98.1 F 01/06/24 08:00 Pulse 68 01/06/24 11:19 Resp 16 01/06/24 11:19 BP 124/74 01/06/24 11:19 Pulse Ox 94 L 01/06/24 11:19 FiO2 21 01/06/24 09:08 Intake & Output 01/05/24 01/06/24 01/06/24 18:59 06:59 18:59 Intake Total 480 Output Total 1 Balance -1 480 Weight 80.2 kg Intake: Oral 480 Output: Urine 1 Other: Voiding Method Toilet Toilet # Voids 1 2 # Bowel Movements 1 - Labs CBC & Chem 7: 01/06/24 07:24 01/06/24 07:24 Labs: Abnormal Lab Results - Last 24 Hours (Table) 01/06/24 01/06/24 Range/Units 07:24 07:24 RBC 4.04 L (4.30-5.90) m/uL MCV 105.5 H (80.0-100.0) fL Sodium 135 L (137-145) mmol/L Carbon Dioxide 17 L (22-30) mmol/L Creatinine 0.64 L (0.66-1.25) mg/dL Glucose 120 H (74-99) mg/dL Assessment and Plan Time with Patient: Less than 30
[2024-01-06] MEDS: LORazepam 1 MG TAB PO PRN (19:38)
[2024-01-07] MEDS ORDERED: NON FORMULARY DRUG (Vitamin B Complex [Vitamin B Complex] 1 EACH Capsule) PO SCH (12:07)
--- NOTE | 2024-01-07 12:51 | P.PN ---
Subjective HISTORY OF PRESENT ILLNESS: This is a 83-year-old female with a past medical history significant for hypertension, hypothyroidism, atrial fibrillation, and alcohol abuse. Patient used to follow in the office with Dr. Asencio but has not been seen since 2019. We have been asked to see the patient in consultation for A-fib with RVR. Patient examined at the bedside in the emergency room. Patient states yesterday he was at home and was drinking quite heavily. He states that he ended up falling. He states he fell twice at home. He states the first time he was sitting down for a long period of time and then when he stood up to walk he fell. The patient thinks some of his symptoms may be due to his increased alcohol intake. The patient was found to be in A-fib with RVR. At the time of examination he remains in atrial fibrillation with a heart rate in the 90s. He is currently on IV Cardizem. He currently denies any chest pain or pressure. He denies any shortness of breath. DIAGNOSTICS: - EKG reveals A-fib with RVR - Chest xray suspected pleural plaquing right lung base similar to prior study. Negative for acute process. - Laboratory data: WBC 11.5. Hemoglobin 15.8. Platelet count 182. Sodium 134. Potassium 3.8. BUN 13. Creatinine 0.79. Lactic acid 6.3. Repeat 1.9. proBNP 377. Troponin negative x 1. TSH 3.670. - Current home cardiac medications include Lasix 20 mg daily, aspirin 81 mg daily, amlodipine 5 mg daily, valsartan 320 mg daily. - Most recent echocardiogram obtained in April 2019 revealed ejection fraction 45 to 50%, mild MR, mild TR 01/06/2024 Patient examined this morning at the bedside. Patient currently denies chest pain or pressure. He denies shortness of breath. He remains in atrial fibrillation with controlled ventricular rate in the 70s. 01/07/2024 Patient examined this morning the bedside. Patient currently denies chest pain or pressure. He denies shortness of breath. Patient is maintaining sinus mechanism this morning. Vital signs are stable. PHYSICAL EXAM: VITAL SIGNS: Reviewed. GENERAL: Well-developed in no acute distress. HEENT: Head is normocephalic. Pupils are equal, round. Sclerae anicteric. Mucous membranes of the mouth are moist. Neck supple. No JVD or thyromegaly LUNGS: Respirations even and unlabored. Lungs essentially clear to auscultation bilaterally. HEART: Regular rate and rhythm. S1 and S2 heard. ABDOMEN: Soft. Nondistended. Nontender. EXTREMITIES: Normal range of motion. No clubbing or cyanosis. Peripheral pulses intact. No lower extremity edema NEUROLOGIC: Awake and alert. Oriented x 3. ASSESSMENT: Status post fall with suspected syncope Acute alcohol intoxication Paroxysmal atrial fibrillation with RVR History of alcohol abuse Hypertension Hypothyroidism PLAN: 2D echo ordered. Await results. Continue current dose of metoprolol Continue home cardiac medications including amlodipine. Hold valsartan. Due to patient's reported heavy alcohol use and falls, patient is at high risk to begin anticoagulation. Discussed anticoagulation with patient and if he is able to remain sober and has no further episodes of syncope or falling, will consider initiating anticoagulation on outpatient basis. Continue telemetry monitoring Abstinence from alcohol recommended Stable for discharge from a cardiac standpoint Further recommendations pending patient course Nurse practitioner note has been reviewed by physician. Signing provider agrees with the documented findings, assessment, and plan of care documented by PASSENGER REPRESENTATIVE as a scribe. Objective - Vital Signs Vital signs: Vital Signs Temp 98.1 F 01/07/24 11:31 Pulse 61 01/07/24 11:31 Resp 16 01/07/24 11:31 BP 143/70 01/07/24 11:31 Pulse Ox 97 01/07/24 11:31 FiO2 21 01/06/24 09:08 Intake & Output 01/06/24 01/07/24 01/07/24 18:59 06:59 18:59 Intake Total 720 10 Output Total 0 Balance 720 0 10 Weight 79.6 kg Intake: IV 10 Invasive Line 2 10 Oral 720 Output: Urine 0 Other: Voiding Method Toilet Toilet Toilet # Voids 1 1 # Bowel Movements 1 - Labs CBC & Chem 7: 01/06/24 07:24 01/06/24 07:24
--- NOTE | 2024-01-07 12:57 | CA ---
Transthoracic Echo Report Name: Jhonny Tobar Age: 83 Gender: M : 1940 Exam Date: 01/06/2024 14:13 Exam Location: [facility] [facility] Ht (in): 69 Wt (lb): 170 Ordering Physician: Natalia Nevarez Attending/Referring Phys: [id number], Geri Fluid Pump Operator Betty Junior RDCS Procedure CPT: Indications: syncope, AF Cardiac Hx: Technical Quality: Technically difficult study Contrast 1: Definity Total Dose (mL): 2 Contrast 2: Total Dose (mL): MEASUREMENTS (Male / Female) Normal Values 2D ECHO LV Diastolic Diameter PLAX 4.7 cm 4.2 - 5.9 / 3.9 - 5.3 cm LV Systolic Diameter PLAX 3.1 cm IVS Diastolic Thickness 1.5 cm 0.6 - 1.0 / 0.6 - 0.9 cm LVPW Diastolic Thickness 1.3 cm 0.6 - 1.0 / 0.6 - 0.9 cm LV Relative Wall Thickness 0.6 LVOT Diameter 2.4 cm LV Diastolic Volume MOD BP 118.3 cm??? 67 - 155 / 56 - 104 cm??? LV Systolic Volume MOD BP 40.8 cm??? 22 - 58 / 19 - 49 cm??? LV Ejection Fraction MOD BP 65.5 % >= 55 % LV Cardiac Index MOD BP 3226.1 cm???/min???m??? LV Diastolic Volume MOD 4C 133.0 cm??? LV Systolic Volume MOD 4C 43.4 cm??? LV Ejection Fraction MOD 4C 67.4 % LV Cardiac Index MOD 4C 3727.2 cm???/min???m??? LV Diastolic Length 4C 9.5 cm LV Systolic Length 4C 7.9 cm LV Diastolic Volume MOD 2C 104.6 cm??? LV Systolic Volume MOD 2C 37.0 cm??? LV Ejection Fraction MOD 2C 64.7 % LV Cardiac Index MOD 2C 2815.1 cm???/min???m??? LV Diastolic Length 2C 9.4 cm LV Systolic Length 2C 7.4 cm Ascending Aorta Diameter 3.9 cm DOPPLER AV Peak Velocity 101.3 cm/s AV Peak Gradient 4.1 mmHg AV Mean Velocity 73.2 cm/s AV Mean Gradient 2.3 mmHg AV Velocity Time Integral 22.5 cm LVOT Peak Velocity 94.5 cm/s LVOT Peak Gradient 3.6 mmHg LVOT Velocity Time Integral 19.5 cm LVOT Stroke Volume 87.1 cm??? LVOT Stroke Volume Index 45.2 ml/m??? LVOT Cardiac Index 3625.5 cm???/min???m??? AV Area Cont Eq vti 3.9 cm??? AV Area Cont Eq pk 4.2 cm??? TR Peak Velocity 205.2 cm/s TR Peak Gradient 16.8 mmHg Right Atrial Pressure 10.0 mmHg Pulmonary Artery Systolic Pressu 26.8 mmHg Right Ventricular Systolic Press 26.8 mmHg PV Peak Velocity 64.0 cm/s PV Peak Gradient 1.6 mmHg FINDINGS Left Ventricle Left ventricular ejection fraction is estimated at 60-65 % with beat to beat variability. Moderately increased septal wall thickness. Left ventricular cavity size normal. No obvious regional wall motion abnormalities. Right Ventricle Normal right ventricular size and function. Right ventricular systolic pressure within normal limits. Right Atrium Right atrium not well visualized. Left Atrium Normal left atrial size. Mitral Valve Structurally normal mitral valve. No mitral stenosis, regurgitation or prolapse. Aortic Valve Trileaflet aortic valve. No aortic stenosis. Mild aortic regurgitation. Tricuspid Valve Structurally normal tricuspid valve. No tricuspid stenosis. Trace tricuspid regurgitation. Pulmonic Valve Pulmonic valve not well visualized. No pulmonic stenosis. Trace pulmonic regurgitation. Pericardium No pericardial effusion. Aorta Normal size aortic root and proximal ascending aorta. CONCLUSIONS Left ventricular ejection fraction 60-65% Moderate increased left ventricular wall thickness RVSP 27 Mild aortic regurgitation Trace tricuspid regurgitation Previewed by: Dr. Todd Lim DO (Electronically Signed) Final Date: 07 January 2024 12:56
--- NOTE | 2024-01-07 14:04 | XR ---
EXAMINATION TYPE: XR femur LT DATE OF EXAM: 01/07/2024 COMPARISON: 01/07/2024 HISTORY: Fall TECHNIQUE: Left femur is examined in 2 views FINDINGS: Femoral head articulates with the acetabulum. No acute fracture or dislocation is evident. Moderate degenerative joint changes are at the left knee. Follow up exams can be performed 7-10 days from acute trauma for continued pain. IMPRESSION: 1. No acute osseous abnormality left femur
--- NOTE | 2024-01-07 16:57 | XR ---
EXAMINATION TYPE: XR Hip Complete LT DATE OF EXAM: 01/07/2024 COMPARISON: None HISTORY: Continued pain following fall TECHNIQUE: 2 view left hip FINDINGS: Femoral head articulates with the acetabulum. No acute fracture or dislocation evident IMPRESSION: 1. No acute osseous abnormality left hip radiographically apparent.
--- NOTE | 2024-01-07 23:01 | P.PN ---
Subjective Progress Note Date: 01/07/24 81-year-old pleasant male came in after syncopal episode patient has been drinking heavily. Patient does have history of atrial fibrillation found to be in A-fib with rapid flow rate patient is presently on Cardizem which is being transitioned to oral beta-yary. Patient has been depressed and quite weak lately patient fell twice recently. Chest x-ray did not show any significant abnormality patient does have history of congestive heart failure with EF of around 40 to 50% mild MR and mild TR. Patient also appears to be hypervolemic clinically patient was started on IV fluids. Patient had elevated lactic acid on admission and his proBNP is only 377. 01/06/2024 Patient is evaluated today in follow-up resting in bed. Patient remains in atrial fibrillation however now with controlled heart rate. Echocardiogram is taken and currently pending. Patient is now off of the Cardizem and this co ntinued on oral Lopressor. Continues on IV Ativan CIWA protocol. Does not appear to be actively withdrawing at this time. He will need subacute rehab on discharge. Magnesium 1.7 01/07/2024 Patient is evaluated today in follow up resting in bed. Reports significant pain to the left leg states this was post fall. Echocardiogram reveals EF 60-65% trace TR. REVIEW OF SYSTEMS: CONSTITUTIONAL: No fever, no malaise, no fatigue. HEENT: No recent visual problems or hearing problems. Denied any sore throat. CARDIOVASCULAR: No chest pain, orthopnea, PND, no palpitations, no syncope. PULMONARY: No shortness of breath, no cough, no hemoptysis. GASTROINTESTINAL: No diarrhea, no nausea, no vomiting, no abdominal pain. NEUROLOGICAL: No headaches, no weakness, no numbness. PHYSICAL EXAMINATION: GENERAL: The patient is alert and oriented x3, not in any acute distress. Well developed, well nourished. HEENT: Pupils are round and equally reacting to light. EOMI. No scleral icterus. No conjunctival pallor. Normocephalic, atraumatic. No pharyngeal erythema. No thyromegaly. CARDIOVASCULAR: S1 and S2 present. No murmurs, rubs, or gallops. PULMONARY: Chest is clear to auscultation, no wheezing or crackles. ABDOMEN: Soft, nontender, nondistended, normoactive bowel sounds. No palpable or ganomegaly. MUSCULOSKELETAL: No joint swelling or deformity. EXTREMITIES: No cyanosis, clubbing, or pedal edema. NEUROLOGICAL: Gross neurological examination did not reveal any focal deficits. SKIN: No rashes. Assessment and plan -Fall and syncope: Probably secondary to atrial fibrillation patient is now off of Cardizem and continues on oral metoprolol cardiology recommending to hold off on anticoagulation at this time as patient is a high risk for fall secondary to his alcoholism. -Alcohol intoxication -Alcohol withdrawal patient will be on Ativan CIWA protocol for this and patient is willing to quit alcohol completely -Paroxysmal atrial fibrillation with rapid ventricular rate rate, now rate is controlled -Lactic acidosis secondary to hypovolemia and dehydration continue with IV flu ids hold off on Lasix. -Hypertension patient is hypotensive and had a syncopal episode hold off vals mary, Lasix continue with IV fluids -Generalized weakness secondary to age-related muscle atrophy and chronic alcoholism physical therapy Occupational Therapy evaluation recommending subacute rehab on discharge -Congestive heart failure chronic systolic function with improved EF. DVT prophylaxis: On anticoagulation which will be continued The impression and plan of care has been dictated by Aliyah Xiao, Nurse Practitioner as directed. Dr. Ysabel MD I have performed a history and physical examination and medical decision making of this patient, discussed the same with the dictator, and agree with the dictators assessment and plan as written, documented as a scribe. Based on total visit time, I have performed more than 50% of this visit. Objective - Vital Signs Vital signs: Vital Signs Temp 98.2 F 01/07/24 19:39 Pulse 63 01/07/24 19:39 Resp 18 01/07/24 19:39 BP 134/92 01/07/24 19:39 Pulse Ox 96 01/07/24 19:39 FiO2 21 01/06/24 09:08 Intake & Output 01/07/24 01/07/24 01/08/24 06:59 18:59 06:59 Intake Total 538 10 Output Total 0 Balance 0 538 10 Weight 79.6 kg Intake: IV 20 10 Invasive Line 2 20 10 Intake, IV Titration 400 Amount Sodium Chloride 0.9% 1, 400 000 ml @ 75 mls/hr IV . [id number] ELIE Rx#:[id number] Oral 118 Output: Urine 0 Other: Voiding Method Toilet Toilet Toilet # Voids 1 - Labs CBC & Chem 7: 01/06/24 07:24 01/06/24 07:24 Assessment and Plan Time with Patient: Less than 30
--- NOTE | 2024-01-08 10:18 | P.PN ---
Subjective HISTORY OF PRESENT ILLNESS: This is a 83-year-old female with a past medical history significant for hypertension, hypothyroidism, atrial fibrillation, and alcohol abuse. Patient used to follow in the office with Dr. Asencio but has not been seen since 2019. We have been asked to see the patient in consultation for A-fib with RVR. Patient examined at the bedside in the emergency room. Patient states yesterday he was at home and was drinking quite heavily. He states that he ended up falling. He states he fell twice at home. He states the first time he was sitting down for a long period of time and then when he stood up to walk he fell. The patient thinks some of his symptoms may be due to his increased alcohol intake. The patient was found to be in A-fib with RVR. At the time of examination he remains in atrial fibrillation with a heart rate in the 90s. He is currently on IV Cardizem. He currently denies any chest pain or pressure. He denies any shortness of breath. DIAGNOSTICS: - EKG reveals A-fib with RVR - Chest xray suspected pleural plaquing right lung base similar to prior study. Negative for acute process. - Laboratory data: WBC 11.5. Hemoglobin 15.8. Platelet count 182. Sodium 134. Potassium 3.8. BUN 13. Creatinine 0.79. Lactic acid 6.3. Repeat 1.9. proBNP 377. Troponin negative x 1. TSH 3.670. - Current home cardiac medications include Lasix 20 mg daily, aspirin 81 mg daily, amlodipine 5 mg daily, valsartan 320 mg daily. - Most recent echocardiogram obtained in April 2019 revealed ejection fraction 45 to 50%, mild MR, mild TR 01/06/2024 Patient examined this morning at the bedside. Patient currently denies chest pain or pressure. He denies shortness of breath. He remains in atrial fibrillation with controlled ventricular rate in the 70s. 01/07/2024 Patient examined this morning the bedside. Patient currently denies chest pain or pressure. He denies shortness of breath. Patient is maintaining sinus mechanism this morning. Vital signs are stable. 01/08/2024 Patient examined this morning at the bedside. Patient currently denies chest pain or pressure. He denies shortness of breath. Vital signs are stable. Echocardiogram completed revealing ejection fraction 60 to 65% PHYSICAL EXAM: VITAL SIGNS: Reviewed. GENERAL: Well-developed in no acute distress. HEENT: Head is normocephalic. Pupils are equal, round. Sclerae anicteric. Mucous membranes of the mouth are moist. Neck supple. No JVD or thyromegaly LUNGS: Respirations even and unlabored. Lungs essentially clear to auscultation bilaterally. HEART: Regular rate and rhythm. S1 and S2 heard. ABDOMEN: Soft. Nondistended. Nontender. EXTREMITIES: Normal range of motion. No clubbing or cyanosis. Peripheral pulses intact. No lower extremity edema NEUROLOGIC: Awake and alert. Oriented x 3. ASSESSMENT: Status post fall with suspected syncope Acute alcohol intoxication Paroxysmal atrial fibrillation with RVR History of alcohol abuse Hypertension Hypothyroidism PLAN: Continue current dose of metoprolol Continue home cardiac medications including amlodipine. Hold valsartan. Due to patient's reported heavy alcohol use and falls, patient is at high risk to begin anticoagulation. Discussed anticoagulation with patient and if he is able to remain sober and has no further episodes of syncope or falling, will consider initiating anticoagulation on outpatient basis. Continue telemetry monitoring Abstinence from alcohol recommended Stable for discharge from a cardiac standpoint Will sign off. Please reconsult if needed. Nurse practitioner note has been reviewed by physician. Signing provider agrees with the documented findings, assessment, and plan of care documented by CRYSTAL MACHINING COORDINATOR as a scribe. Objective - Vital Signs Vital signs: Vital Signs Temp 98.0 F 01/08/24 08:56 Pulse 59 L 01/08/24 08:56 Resp 18 01/08/24 08:56 BP 111/61 01/08/24 08:56 Pulse Ox 93 L 01/08/24 08:56 FiO2 21 01/06/24 09:08 Intake & Output 01/07/24 01/08/24 01/08/24 18:59 06:59 18:59 Intake Total 538 20 10 Output Total 0 Balance 538 20 10 Weight 78.7 kg Intake: IV 20 20 10 Invasive Line 2 20 20 10 Intake, IV Titration 400 Amount Sodium Chloride 0.9% 1, 400 000 ml @ 75 mls/hr IV . [id number] ELIE Rx#:[id number] Oral 118 0 Output: Urine 0 Other: Voiding Method Toilet Toilet Toilet # Voids 1 - Labs CBC & Chem 7: 01/06/24 07:24 01/06/24 07:24
--- NOTE | 2024-01-08 20:17 | P.PN ---
Subjective Progress Note Date: 01/08/24 81-year-old pleasant male came in after syncopal episode patient has been drinking heavily. Patient does have history of atrial fibrillation found to be in A-fib with rapid flow rate patient is presently on Cardizem which is being transitioned to oral beta-yary. Patient has been depressed and quite weak lately patient fell twice recently. Chest x-ray did not show any significant abnormality patient does have history of congestive heart failure with EF of around 40 to 50% mild MR and mild TR. Patient also appears to be hypervolemic clinically patient was started on IV fluids. Patient had elevated lactic acid on admission and his proBNP is only 377. 01/06/2024 Patient is evaluated today in follow-up resting in bed. Patient remains in atrial fibrillation however now with controlled heart rate. Echocardiogram is taken and currently pending. Patient is now off of the Cardizem and this co ntinued on oral Lopressor. Continues on IV Ativan CIWA protocol. Does not appear to be actively withdrawing at this time. He will need subacute rehab on discharge. Magnesium 1.7 01/07/2024 Patient is evaluated today in follow up resting in bed. Reports significant pain to the left leg states this was post fall. Echocardiogram reveals EF 60-65% trace TR. 01/08/2024 Patient evaluated today in follow up on step down unit. Patient does report improvement in his leg pain. The left femur and hip xray reveal no acute fractures. Patient remains in atrial fibrillation with controlled ventricular rate. Patient is currently maintained on metoprolol. REVIEW OF SYSTEMS: CONSTITUTIONAL: No fever, no malaise, no fatigue. HEENT: No recent visual problems or hearing problems. Denied any sore throat. CARDIOVASCULAR: No chest pain, orthopnea, PND, no palpitations, no syncope. PULMONARY: No shortness of breath, no cough, no hemoptysis. GASTROINTESTINAL: No diarrhea, no nausea, no vomiting, no abdominal pain. NEUROLOGICAL: No headaches, no weakness, no numbness. PHYSICAL EXAMINATION: GENERAL: The patient is alert and oriented x3, not in any acute distress. Well developed, well nourished. HEENT: Pupils are round and equally reacting to light. EOMI. No scleral icterus. No conjunctival pallor. Normocephalic, atraumatic. No pharyngeal erythema. No thyromegaly. CARDIOVASCULAR: S1 and S2 present. No murmurs, rubs, or gallops. PULMONARY: Chest is clear to auscultation, no wheezing or crackles. ABDOMEN: Soft, nontender, nondistended, normoactive bowel sounds. No palpable organomegaly. MUSCULOSKELETAL: No joint swelling or deformity. EXTREMITIES: No cyanosis, clubbing, or pedal edema. NEUROLOGICAL: Gross neurological examination did not reveal any focal deficits. focal tenderness to the left femur. SKIN: No rashes. Assessment and plan -Fall and syncope: Probably secondary to atrial fibrillation patient is now off of Cardizem and continues on oral metoprolol cardiology recommending to hold off on anticoagulation at this time as patient is a high risk for fall secondary to his alcoholism. -Alcohol intoxication on admission. -Alcohol withdrawal treated with IV ativan which has since been discontinued patient is no longer exhibiting symptoms of -Paroxysmal atrial fibrillation with rapid ventricular rate rate, now rate is controlled -Lactic acidosis secondary to hypovolemia and dehydration continue with IV fluids hold off on Lasix. -Hypertension patient is hypotensive and had a syncopal episode hold off valsartan, Lasix continue with IV fluids -Generalized weakness secondary to age-related muscle atrophy and chronic alcoholism physical therapy Occupational Therapy evaluation recommending subacute rehab on discharge and currently pending authorization -Congestive heart failure chronic systolic function with improved EF. DVT prophylaxis: subcu heparin GI prophylaxis Protonix Full Code The impression and plan of care has been dictated by Aliyah Xiao, Nurse Practitioner as directed. Dr. Ysabel MD I have performed a history and physical examination and medical decision making of this patient, discussed the same with the dictator, and agree with the dictators assessment and plan as written, documented as a scribe. Based on total visit time, I have performed more than 50% of this visit. Objective - Vital Signs Vital signs: Vital Signs Temp 98.0 F 01/08/24 08:56 Pulse 59 L 01/08/24 08:56 Resp 18 01/08/24 08:56 BP 111/61 01/08/24 08:56 Pulse Ox 93 L 01/08/24 08:56 FiO2 21 01/06/24 09:08 Intake & Output 01/07/24 01/08/24 01/08/24 18:59 06:59 18:59 Intake Total 538 20 10 Output Total 0 Balance 538 20 10 Weight 78.7 kg Intake: IV 20 20 10 Invasive Line 2 20 20 10 Intake, IV Titration 400 Amount Sodium Chloride 0.9% 1, 400 000 ml @ 75 mls/hr IV . [id number] [facility] Rx#:[id number] Oral 118 0 Output: Urine 0 Other: Voiding Method Toilet Toilet Toilet # Voids 1 - Labs CBC & Chem 7: 01/06/24 07:24 01/06/24 07:24 Assessment and Plan Time with Patient: Less than 30
[2024-01-08] MEDS: HEPARIN SODIUM,PORCINE 5,000 UNIT/ML 1 ML VIAL SQ SCH (20:38)
[2024-01-09 09:55] LABS: BUN/Creat Ratio 10.38 Ratio (12.00-20.00); Blood Urea Nitrogen 8.3 mg/dL (9.0-27.0); Calcium 8.5 mg/dL (8.7-10.3); Carbon Dioxide 24.3 mmol/L (21.6-31.8); Chloride 97 mmol/L (96-109); Glucose 99 mg/dL (70-110); Magnesium 1.7 mg/dL (1.5-2.4); Potassium 3.2 mmol/L (3.5-5.5); Sodium 136 mmol/L (135-145)
[2024-01-09] MEDS: POTASSIUM CHLORIDE ER 20 MEQ TAB.ER PO SCH (11:29)
[2024-01-09] MEDS: ZINC OXIDE PASTE (Z-GUARD) 1 APPLIC TOPICAL SCH (11:29)
[2024-01-09] MEDS: MAGNESIUM SULFATE-D5W PMX 1 GM in DEXTROSE/WATER 1 100ML.BAG IVPB ONE (12:31)
[2024-01-09 15:31] LABS: Amorphous Sediment,Urine Rare /hpf; Appearance,Urine Cloudy (Clear); Bilirubin,Urine Negative (Negative); Blood,Urine Trace (Negative); Color,Urine Yellow; Glucose,Urine (UA) Negative (Negative); Ketones,Urine 1+ (Negative); Leukocyte Esterase,Urine Negative (Negative); Mucus,Urine Occasional /hpf; Nitrite,Urine Negative (Negative); Protein,Urine Negative (Negative); RBC,Urine 2 /hpf (0-5); Specific Gravity,Urine 1.016 (1.001-1.035); Squamous Epithelial Cell,Urine <1 /hpf (0-4); WBC,Urine 2 /hpf (0-5)
--- NOTE | 2024-01-09 16:40 | P.PN ---
Subjective Progress Note Date: 01/09/24 81-year-old pleasant male came in after syncopal episode patient has been drinking heavily. Patient does have history of atrial fibrillation found to be in A-fib with rapid flow rate patient is presently on Cardizem which is being transitioned to oral beta-yary. Patient has been depressed and quite weak lately patient fell twice recently. Chest x-ray did not show any significant abnormality patient does have history of congestive heart failure with EF of around 40 to 50% mild MR and mild TR. Patient also appears to be hypervolemic clinically patient was started on IV fluids. Patient had elevated lactic acid on admission and his proBNP is only 377. 01/06/2024 Patient is evaluated today in follow-up resting in bed. Patient remains in atrial fibrillation however now with controlled heart rate. Echocardiogram is taken and currently pending. Patient is now off of the Cardizem and this co ntinued on oral Lopressor. Continues on IV Ativan CIWA protocol. Does not appear to be actively withdrawing at this time. He will need subacute rehab on discharge. Magnesium 1.7 01/07/2024 Patient is evaluated today in follow up resting in bed. Reports significant pain to the left leg states this was post fall. Echocardiogram reveals EF 60-65% trace TR. 01/08/2024 Patient evaluated today in follow up on step down unit. Patient does report improvement in his leg pain. The left femur and hip xray reveal no acute fractures. Patient remains in atrial fibrillation with controlled ventricular rate. Patient is currently maintained on metoprolol. 01/09/2024 Patient is evaluated today in follow up resting in bed. Patient has been slightly agitated and did not sleep well last night. He reports pain to the left leg has improved some. He remains in atrial fibrillation with a controlled rate. There was concern for bleeding from his penis as there was blood noted in the brief however appears to be from small area of excoriation on his scrotum. Will monitor. Labs today reveal sodium level 136, potassium 3.2, BUN 8.3, creatinine 0.8, magnesium 1.7. Urinalysis is not showing any hematuria. Patient is having ectopi. He is on celexa, zofran and seroquel. This medications can cause QT prolongation and his QT/QTC showing 490/502. REVIEW OF SYSTEMS: CONSTITUTIONAL: No fever, no malaise, no fatigue. HEENT: No recent visual problems or hearing problems. Denied any sore throat. CARDIOVASCULAR: No chest pain, orthopnea, PND, no palpitations, no syncope. PULMONARY: No shortness of breath, no cough, no hemoptysis. GASTROINTESTINAL: No diarrhea, no nausea, no vomiting, no abdominal pain. NEUROLOGICAL: No headaches, no weakness, no numbness. PHYSICAL EXAMINATION: GENERAL: The patient is alert and oriented x3, not in any acute distress. Well developed, well nourished. HEENT: Pupils are round and equally reacting to light. EOMI. No scleral icterus. No conjunctival pallor. Normocephalic, atraumatic. No pharyngeal erythema. No thyromegaly. CARDIOVASCULAR: S1 and S2 present. No murmurs, rubs, or gallops. PULMONARY: Chest is clear to auscultation, no wheezing or crackles. ABDOMEN: Soft, nontender, nondistended, normoactive bowel sounds. No palpable organomegaly. MUSCULOSKELETAL: No joint swelling or deformity. EXTREMITIES: No cyanosis, clubbing, or pedal edema. NEUROLOGICAL: Gross neurological examination did not reveal any focal deficits. focal tenderness to the left femur. SKIN: No rashes. Assessment and plan -Fall and syncope: Probably secondary to atrial fibrillation patient is now off of Cardizem and continues on oral metoprolol cardiology recommending to hold off on anticoagulation at this time as patient is a high risk for fall secondary to his alcoholism. -Alcohol intoxication on admission. -Alcohol withdrawal treated with IV ativan which has since been discontinued patient is no longer exhibiting symptoms of so ativan has been discontinued -Recommending to continue celexa, discontinue zofran and decrease seroquel. Repeat EKG in the AM for QT monitoring. -Paroxysmal atrial fibrillation with rapid ventricular rate rate, now rate is controlled -Lactic acidosis secondary to hypovolemia and dehydration continue with IV fluids hold off on Lasix. -Hypertension patient is hypotensive and had a syncopal episode hold off valsartan, Lasix continue with IV fluids -Generalized weakness secondary to age-related muscle atrophy and chronic alcoholism physical therapy Occupational Therapy evaluation recommending subacute rehab on discharge and currently pending authorization -Congestive heart failure chronic systolic function with improved EF. DVT prophylaxis: subcu heparin GI prophylaxis Protonix Full Code The impression and plan of care has been dictated by Aliyah Xiao Nurse Practitioner as directed. Dr. Ysabel MD I have performed a history and physical examination and medical decision making of this patient, discussed the same with the dictator, and agree with the dictators assessment and plan as written, documented as a scribe. Based on total visit time, I have performed more than 50% of this visit. Objective - Vital Signs Vital signs: Vital Signs Temp 97.9 F 01/09/24 07:32 Pulse 58 L 01/09/24 07:32 Resp 16 01/09/24 07:32 BP 115/71 01/09/24 07:32 Pulse Ox 96 01/09/24 07:32 FiO2 21 01/06/24 09:08 Intake & Output 01/08/24 01/09/24 01/09/24 18:59 06:59 18:59 Intake Total 130 Output Total 0 Balance 130 Intake: IV 10 Invasive Line 2 10 Oral 120 Output: Urine 0 Other: Voiding Method Toilet # Voids 200 6 - Labs CBC & Chem 7: 01/06/24 07:24 01/09/24 03:42 Assessment and Plan Time with Patient: Less than 30
[2024-01-09] MEDS: QUEtiapine 25 MG TAB PO SCH (20:45)
[2024-01-09] MEDS ORDERED: QUEtiapine 25 MG TAB PO SCH (21:00)
[2024-01-10 08:12] VITALS: BP 155/77; PULSE 52; RESP 15; TEMP 97.6
[2024-01-10 09:32] LABS: BUN/Creat Ratio 13.62 Ratio (12.00-20.00); Blood Urea Nitrogen 10.9 mg/dL (9.0-27.0); Calcium 8.6 mg/dL (8.7-10.3); Carbon Dioxide 23.3 mmol/L (21.6-31.8); Chloride 101 mmol/L (96-109); Glucose 98 mg/dL (70-110); Magnesium 2.1 mg/dL (1.5-2.4); Potassium 3.8 mmol/L (3.5-5.5); Sodium 135 mmol/L (135-145)
--- NOTE | 2024-01-10 13:16 | P.DS ---
Providers Date of admission: 01/04/24 16:39 Attending physician: Carroll Alarcon Primary care physician: Andrew Baldwin [facility] Course: Final Diagnosis -Fall and syncope: Probably secondary to atrial fibrillation patient is now off of Cardizem and continues on oral metoprolol -Alcohol intoxication on admission. -Alcohol withdrawal treated with IV ativan which has since been discontinued patient is no longer exhibiting symptoms of so ativan has been discontinued -Paroxysmal atrial fibrillation with rapid ventricular rate rate, now rate is controlled -Lactic acidosis secondary to hypovolemia and dehydration continue with IV fluids hold off on Lasix. -Hypertension -Generalized weakness secondary to age-related muscle atrophy and chronic alcoholism physical therapy Occupational Therapy evaluation recommending subacute rehab on discharge -Congestive heart failure chronic systolic function with improved EF. DVT prophylaxis: subcu heparin Discharge Disposition Patient is evaluated today and stable for discharge to subacute rehab. Cardiology recommending to hold off on anticoagulation at this time as patient is a high risk for fall secondary to his alcoholism. Patient is not had any further symptoms of alcohol withdrawal at this time and has been off ativan. He remains in atrial fibrillation with controlled rate. He continues on Lasix daily as well as metoprolol 25 mg twice a day. Recommending to repeat blood work in 2 to 3 days. Hospital Course 81-year-old pleasant male came in after syncopal episode patient has been drinking heavily. Patient does have history of atrial fibrillation, found thypertension heart failure chronic systolic dysfunction, alcoholism. He was found to be in A-fib with rapid flow rate patient was started on IV Cardizem which is being transitioned to oral beta-yary. Patient has been depressed and quite weak lately patient fell twice recently. Chest x-ray did not show any significant abnormality patient does have history of congestive heart failure with EF of around 40 to 50% mild MR and mild TR. Patient also appears to be hypervolemic clinically patient was started on IV fluids. Patient had elevated lactic acid on admission and his proBNP is only 377. Was monitored on Ativan alcohol CIWA protocol and currently now is exhibiting no signs of alcohol withdrawal. Ativan has been discontinued for the last 2 to 3 days. Patient is alert oriented x 3. He was given Seroquel at at bedtime for insomnia. Patient had a repeat echocardiogram done revealing normal ejection fraction of 60 to 65% with trace tricuspid regurgitation this is improved from his prior echocardiogram. Patient remains in atrial fibrillation however rate controlled. There was concern for some ectopy on the monitor patient received potassium magnesium supplementation and has been monitored on cardiac telemetry overnight and he remains in atrial fibrillation rate controlled. Please see medication reconciliation for a list of current medications. Thank you for allowing us to participate in the care of this patient. The impression and plan of care has been dictated by Aliyah Xiao Nurse Practitioner as directed. Dr. Ysabel MD I have performed a history and physical examination and medical decision making of this patient, discussed the same with the dictator, and agree with the dictators assessment and plan as written, documented as a scribe. Based on total visit time, I have performed more than 50% of this visit. Patient Condition at Discharge: Fair Plan - Discharge Summary Discharge Rx Participant: No New Discharge Prescriptions: New Citalopram Hydrobromide [CeleXA] 10 mg PO DAILY tab Pantoprazole Sodium [Protonix] 20 mg PO DAILY #30 tab Metoprolol Tartrate [Lopressor] 50 mg PO BID tab Continue Aspirin EC [Ecotrin Low Dose] 81 mg PO DAILY amLODIPine [Norvasc] 5 mg PO DAILY Cyanocobalamin (Vitamin B-12) [Vitamin B-12] 1,000 mcg PO DAILY Mv-Min/Folic/K1/Lycopen/Lutein [Centrum Silver Men Tablet] 2 tab PO DAILY Vitamin B Complex 1 cap PO TUFR Furosemide [Lasix] 20 mg PO DAILY Levothyroxine Sodium [Synthroid] 100 mcg PO DAILY Discontinued Valsartan [Diovan] 320 mg PO DAILY Discharge Medication List Aspirin EC [Ecotrin Low Dose] 81 mg PO DAILY 07/16/15 [History] amLODIPine [Norvasc] 5 mg PO DAILY 10/28/17 [History] Cyanocobalamin (Vitamin B-12) [Vitamin B-12] 1,000 mcg PO DAILY 01/04/24 [History] Furosemide [Lasix] 20 mg PO DAILY 01/04/24 [History] Levothyroxine Sodium [Synthroid] 100 mcg PO DAILY 01/04/24 [History] Mv-Min/Folic/K1/Lycopen/Lutein [Centrum Silver Men Tablet] 2 tab PO DAILY 01/04/24 [History] Vitamin B Complex 1 cap PO TUFR 01/04/24 [History] Citalopram Hydrobromide [CeleXA] 10 mg PO DAILY tab 01/07/24 [Rx] Metoprolol Tartrate [Lopressor] 50 mg PO BID tab 01/07/24 [Rx] Pantoprazole Sodium [Protonix] 20 mg PO DAILY #30 tab 01/07/24 [Rx] Follow up Appointment(s)/Referral(s): Alfonso Ramsey MD [STAFF PHYSICIAN] - 1-2 Days (To see at [facility]) Andrew Baldwin DO [Primary Care Provider] - 1-2 days Supa Jarquin MD [STAFF PHYSICIAN] - 1 Week Activity/Diet/Wound Care/Special Instructions: Discharge to rehab Discharge/Stand Alone Forms: AA Meetings [place], Assisted Living Facilities, Outpatient Counseling Discharge Disposition: TRANSFER TO SNF/ECF
== END 2024-01-10 15:44 | DRG 309 ==
LOC: EC 12:51 → 3SCARD 16:39 → 4SSUR 01-08 13:56
PROVIDERS: ADMIT Hospitalist; ATTEND Hospitalist
DX: I48.0 Paroxysmal atrial fibrillation (principal); E87.20 Acidosis, unspecified; I50.22 Chronic systolic (congestive) heart failure; F10.239 Alcohol dependence with withdrawal, unspecified; F10.229 Alcohol dependence with intoxication, unspecified; E03.9 Hypothyroidism, unspecified; E86.0 Dehydration; E86.1 Hypovolemia; G47.00 Insomnia, unspecified; I11.0 Hypertensive heart disease with heart failure; I95.1 Orthostatic hypotension; Z96.651 Presence of right artificial knee joint; W19.XXXA Unspecified fall, initial encounter; Y92.009 Unspecified place in unspecified non-institutional (private) residence as the place of occurrence of the external cause; Z79.01 Long term (current) use of anticoagulants; Z79.82 Long term (current) use of aspirin; Z79.890 Hormone replacement therapy; Z79.899 Other long term (current) drug therapy; Z88.0 Allergy status to penicillin
CPT/HCPCS: 36415; 70450; 71045; 72125; 72170; 73502; 80048; 80053; 80320; 81001; 83605; 83735; 83880; 84100; 84443; 84484; 85025; 85027; 85610; 85730; 93005; 93306; 94760; 96361; 96365; 96366; 96375; 99285